=== PATIENT | male | born 1940 | race Caucasian/White ===

== ENCOUNTER 2016-09-24 10:52 | Outpatient (CLI) | payer MEDICARE, BC | END 2016-09-24 10:53 | disposition home or self-care (01) | DX: E11.9 Type 2 diabetes mellitus without complications (principal); R35.0 Frequency of micturition; I25.10 Atherosclerotic heart disease of native coronary artery without angina pectoris; I10 Essential (primary) hypertension ==

== ENCOUNTER 2017-01-04 09:04 | Outpatient (CLI) | payer MEDICARE, BC ==
[2017-01-04 18:29] LABS: CALCIUM 9.6 mg/dL (8.5-10.3); CREATININE 1.2 mg/dL (0.6-1.2); POTASSIUM 4.5 mmol/L (3.5-5.0)
[2017-01-04 19:01] LABS: HEMOGLOBIN A1C 0.75 g/dL
== END 2017-01-04 09:05 | disposition home or self-care (01) ==
LOC: LAB.S 09:04
PROVIDERS: ATTEND Family Medicine
DX: E11.9 Type 2 diabetes mellitus without complications (principal); I10 Essential (primary) hypertension; E03.9 Hypothyroidism, unspecified
CPT/HCPCS: 36415; 80048; 83036; 84443

== ENCOUNTER 2017-03-22 08:31 | Day surgery (SDC) | payer MEDICARE, BC ==
[2017-03-22] MEDS ORDERED: LACTATED RINGERS 1,000 ML IV ONE (09:10)
[2017-03-22] MEDS ORDERED: MIDAZOLAM 2 MG/2 ML VIAL IVP ONE (09:24)
[2017-03-22] MEDS ORDERED: fentaNYL 100 MCG/2 ML VIAL IVP ONE (09:24)
[2017-03-22 10:56] VITALS: BP 132/72
== END 2017-03-22 08:32 | disposition home or self-care (01) ==
LOC: SDS 08:31
PROVIDERS: ATTEND Surgery
PROC: 0DJD8ZZ Inspection of Lower Intestinal Tract, Via Natural or Artificial Opening Endoscopic (ICD-10-PCS; principal; 2017-03-22 09:45)
DX: Z12.11 Encounter for screening for malignant neoplasm of colon (principal); Z85.038 Personal history of other malignant neoplasm of large intestine; K57.30 Diverticulosis of large intestine without perforation or abscess without bleeding; Z98.0 Intestinal bypass and anastomosis status; K64.8 Other hemorrhoids; E11.9 Type 2 diabetes mellitus without complications; I10 Essential (primary) hypertension; I25.10 Atherosclerotic heart disease of native coronary artery without angina pectoris; E66.9 Obesity, unspecified; E78.5 Hyperlipidemia, unspecified; Z95.5 Presence of coronary angioplasty implant and graft; Z79.82 Long term (current) use of aspirin; Z87.891 Personal history of nicotine dependence
CPT/HCPCS: G0105; J7120

== ENCOUNTER 2017-04-19 08:39 | Outpatient (CLI) | payer MEDICARE, BC ==
[2017-04-19 14:15] LABS: HEMOGLOBIN A1C 0.59 g/dL
== END 2017-04-19 08:40 | disposition home or self-care (01) ==
LOC: LAB.S 08:39
PROVIDERS: ATTEND Family Medicine
DX: E11.9 Type 2 diabetes mellitus without complications (principal)
CPT/HCPCS: 36415; 83036

== ENCOUNTER 2017-05-04 08:00 | Outpatient (CLI) | payer MEDICARE, BC ==
[2017-05-04 18:05] LABS: BILIRUBIN,URINE NEGATIVE (NEGATIVE)
[2017-05-04 18:45] LABS: UA CHARGE (STRIP ONLY) YES; UR CULTURE IF IND NOT INDICATED
== END 2017-05-04 08:01 | disposition home or self-care (01) ==
LOC: LAB.R 08:00
PROVIDERS: ATTEND Nurse Practitioner Family
DX: R30.0 Dysuria (principal)
CPT/HCPCS: 81001; 81003; 87086

== ENCOUNTER 2017-05-04 13:33 | Outpatient (CLI) | payer MEDICARE, BC ==
[2017-05-04 17:47] LABS: BASOPHILS % (AUTO) 0.4 %; EOSINOPHILS # (AUTO) 0.3 10^3/uL (0.0-0.7); EOSINOPHILS % (AUTO) 3.2 %; HGB - HEMOGLOBIN 11.3 g/dL (14.0-18.0); LYMPHOCYTES % (AUTO) 10.1 %; MEAN CORPUSCULAR HEMOGLOBIN 30.1 pg (27.0-31.0); MEAN CORPUSCULAR HGB CONC 33.2 g/dL (32.0-36.0); MEAN CORPUSCULAR VOLUME 90.6 fL (80.0-94.0); MEAN PLATELET VOLUME 7.9 fL (7.4-11.4); MONOCYTES # (AUTO) 0.5 10^3/uL (0.0-1.0); MONOCYTES % (AUTO) 5.3 %; NEUTROPHILS # (AUTO) 7.9 10^3/uL (1.5-6.6); RED BLOOD COUNT 3.76 10^6/uL (4.70-6.10); RED CELL DISTRIBUTION WIDTH 13.6 % (12.0-15.0); UNCORRECTED WHITE BLOOD COUNT 9.7 x10^3/uL; WHITE BLOOD COUNT 9.7 x10^3/uL (4.8-10.8)
--- NOTE | 2017-05-04 18:04 | XRAY Report ---
TWO VIEW CHEST: 05/04/2017 CLINICAL INDICATION: Cough. COMPARISON: CT 03/29/2017, plain film 06/02/2011. Frontal and lateral views of the chest demonstrate a normal cardiac silhouette. There are new widesp read infiltrates present, superimposed upon emphysema. No effusion or pneumothorax is seen. IMPRESSION: WIDESPREAD BILATERAL INFILTRATES, SUPERIMPOSED UPON EMPHYSEMA. JOB #: [id number] EXT JOB #:[id number]
== END 2017-05-04 13:34 | disposition home or self-care (01) ==
LOC: LAB.F 13:33
PROVIDERS: ATTEND Family Medicine
DX: J43.9 Emphysema, unspecified (principal); R05 Cough; R30.0 Dysuria
CPT/HCPCS: 36415; 71020; 81001; 81003; 85025; 87086

== ENCOUNTER 2017-05-11 15:58 | Outpatient (CLI) | payer MEDICARE, BC ==
--- NOTE | 2017-05-12 13:42 | XRAY Report ---
TWO VIEW CHEST: 05/11/2017 CLINICAL INDICATION: Pneumonia. COMPARISON: 05/04/2017. FINDINGS: Frontal and lateral views of the chest demonstrate a normal cardiac silhouette. Widespread air space disease and emphysema appear stable. No new consolidation, effusion, or pneumothorax is pr esent. IMPRESSION: STABLE WIDESPREAD AIR SPACE DISEASE AND EMPHYSEMA. JOB #: [id number] EXT JOB #:[id number]
== END 2017-05-11 15:59 | disposition home or self-care (01) ==
LOC: DI.S 15:58
PROVIDERS: ATTEND Nurse Practitioner Family
DX: J18.9 Pneumonia, unspecified organism (principal); J43.9 Emphysema, unspecified
CPT/HCPCS: 71020

== ENCOUNTER 2017-06-10 19:12 | Outpatient (CLI) | payer MEDICARE, BC | END 2017-06-10 19:13 | disposition EMS.NT | LOC: EMS 19:12 | PROVIDERS: ATTEND Surgery | DX: Z03.89 Encounter for observation for other suspected diseases and conditions ruled out (principal); W01.0XXA Fall on same level from slipping, tripping and stumbling without subsequent striking against object, initial encounter; Y92.009 Unspecified place in unspecified non-institutional (private) residence as the place of occurrence of the external cause ==

== ENCOUNTER 2017-06-11 14:05 | Outpatient (CLI) | payer MEDICARE, BC ==
[2017-06-11 17:14] LABS: BILIRUBIN,URINE NEGATIVE (NEGATIVE)
[2017-06-11 17:22] LABS: UR CULTURE IF IND NOT INDICATED
== END 2017-06-11 14:06 | disposition home or self-care (01) ==
LOC: LAB.R 14:05
PROVIDERS: ATTEND Nurse Practitioner Family
DX: R50.9 Fever, unspecified (principal)
CPT/HCPCS: 81001; 87086

== ENCOUNTER 2017-06-11 14:27 | Outpatient (CLI) | payer MEDICARE, BC ==
[2017-06-11 17:51] LABS: ALBUMIN/GLOBULIN RATIO 0.6 (1.0-2.2); BILIRUBIN,TOTAL 0.6 mg/dL (0.2-1.0); CALCIUM 9.4 mg/dL (8.5-10.3); POTASSIUM 3.9 mmol/L (3.5-5.0); TOTAL PROTEIN 8.6 g/dL (6.7-8.2)
[2017-06-11 18:19] LABS: BASOPHILS % (AUTO) 0.5 %; EOSINOPHILS # (AUTO) 0.1 10^3/uL (0.0-0.7); EOSINOPHILS % (AUTO) 1.4 %; HCT - HEMATOCRIT 35.9 % (42.0-52.0); HGB - HEMOGLOBIN 11.7 g/dL (14.0-18.0); LYMPHOCYTES # (AUTO) 1.3 10^3/uL (1.5-3.5); LYMPHOCYTES % (AUTO) 14.5 %; MEAN CORPUSCULAR HEMOGLOBIN 28.3 pg (27.0-31.0); MEAN CORPUSCULAR HGB CONC 32.7 g/dL (32.0-36.0); MEAN CORPUSCULAR VOLUME 86.6 fL (80.0-94.0); MEAN PLATELET VOLUME 7.7 fL (7.4-11.4); MONOCYTES # (AUTO) 0.6 10^3/uL (0.0-1.0); NEUTROPHILS # (AUTO) 6.9 10^3/uL (1.5-6.6); NEUTROPHILS % (AUTO) 76.6 %; NUCLEATED RED BLOOD CELLS AUTO 0.1 /100WBC; RED BLOOD COUNT 4.14 10^6/uL (4.70-6.10); RED CELL DISTRIBUTION WIDTH 14.8 % (12.0-15.0); UNCORRECTED WHITE BLOOD COUNT 8.9 x10^3/uL; WHITE BLOOD COUNT 8.9 x10^3/uL (4.8-10.8)
== END 2017-06-11 14:28 | disposition home or self-care (01) ==
LOC: LAB.F 14:27
PROVIDERS: ATTEND Nurse Practitioner Family
DX: R50.9 Fever, unspecified (principal)
CPT/HCPCS: 36415; 80053; 81001; 85025; 87086

== ENCOUNTER 2017-07-02 11:57 | Outpatient (CLI) | payer MEDICARE, BC ==
--- NOTE | 2017-07-02 18:41 | XRAY Report ---
TWO VIEW CHEST: 07/02/2017 CLINICAL INDICATION: Pneumonia. COMPARISON: 06/02/2017, 05/11/2017. Frontal and lateral views of the chest demonstrate a normal cardiac silhouette. Emphysema is stable. Bilateral air-space disease is unchanged. No effusion or pneumothorax is present. IMPRESSION: STABLE EMPHYSEMA AND BILATERAL AIR-SPACE DISEASE. NO SIGNIFICANT INTERVAL CHANGE. JOB #: [id number] EXT JOB #:[id number]
== END 2017-07-02 11:58 | disposition home or self-care (01) ==
LOC: DI.S 11:57
PROVIDERS: ATTEND Nurse Practitioner Family
DX: J18.9 Pneumonia, unspecified organism (principal); J43.9 Emphysema, unspecified
CPT/HCPCS: 71020

== ENCOUNTER 2017-08-06 12:48 | Outpatient (CLI) | payer MEDICARE, BC | END 2017-08-06 12:49 | disposition home or self-care (01) | LOC: RT 12:48 | PROVIDERS: ATTEND Family Medicine | DX: J44.9 Chronic obstructive pulmonary disease, unspecified (principal); C34.90 Malignant neoplasm of unspecified part of unspecified bronchus or lung | CPT/HCPCS: 94010 ==

== ENCOUNTER 2017-11-11 08:15 | Outpatient (CLI) | payer MEDICARE, BC | END 2017-11-11 08:16 | disposition home or self-care (01) | LOC: LAB.R 08:15 | PROVIDERS: ATTEND Family Medicine | DX: R04.2 Hemoptysis (principal) | CPT/HCPCS: 87070; 87205 ==

== ENCOUNTER 2017-11-11 09:22 | Outpatient (CLI) | payer MEDICARE, BC ==
[2017-11-11 18:02] LABS: ALBUMIN 3.7 g/dL (3.2-5.5); ALBUMIN/GLOBULIN RATIO 0.7 (1.0-2.2); ALKALINE PHOSPHATASE 87 IU/L (42-121); ALT ALANINE AMINOTRANSFERASE 19 IU/L (10-60); AST ASPARTATE AMINOTRANSFERASE 28 IU/L (10-42); BILIRUBIN,TOTAL 0.6 mg/dL (0.2-1.0); BUN - BLOOD UREA NITROGEN 25 mg/dL (6-20); CALCIUM 9.6 mg/dL (8.5-10.3); CARBON DIOXIDE - CO2 28 mmol/L (21-32); CHLORIDE 102 mmol/L (101-111); CHOL/HDL RATIO 5.2 (<5.0); CHOLESTEROL 194 mg/dL; CREATININE 0.9 mg/dL (0.6-1.2); GFR - MDRD 82 (>89); GLUCOSE 153 mg/dL (70-100); HDL CHOLESTEROL 37 mg/dL; LDL CHOLESTEROL,CALCULATED 120 mg/dL; LDL/HDL RATIO 3.2 (<3.6); SODIUM 138 mmol/L (135-145); VLDL CHOLESTEROL 37 mg/dL
[2017-11-11 18:17] LABS: HB2 TOTAL 13.1 g/dL; HEMOGLOBIN A1C 0.7 g/dL
== END 2017-11-11 09:23 | disposition home or self-care (01) ==
LOC: LAB.F 09:22
PROVIDERS: ATTEND Family Medicine
DX: E03.9 Hypothyroidism, unspecified (principal); E11.9 Type 2 diabetes mellitus without complications; I10 Essential (primary) hypertension; E78.5 Hyperlipidemia, unspecified; E29.1 Testicular hypofunction; N52.9 Male erectile dysfunction, unspecified; R04.2 Hemoptysis
CPT/HCPCS: 36415; 80053; 80061; 83036; 83721; 84443; 87070; 87205

== ENCOUNTER 2017-11-17 12:15 | Outpatient (CLI) | payer MEDICARE, BC | END 2017-11-17 12:16 | disposition home or self-care (01) | LOC: LAB.R 12:15 | PROVIDERS: ATTEND Family Medicine | DX: R04.2 Hemoptysis (principal) | CPT/HCPCS: 87070; 87205 ==

== ENCOUNTER 2017-12-02 17:13 | Outpatient (CLI) | payer MEDICARE, BC | END 2017-12-02 17:14 | disposition short-term general hospital (02) | LOC: EMS 17:13 | PROVIDERS: ATTEND Surgery | DX: R04.2 Hemoptysis (principal); R42 Dizziness and giddiness | CPT/HCPCS: A0425; A0427 ==

== ENCOUNTER 2018-06-19 10:37 | Outpatient (CLI) | payer MEDICARE, BC | END 2018-06-19 10:38 | disposition short-term general hospital (02) | LOC: EMS 10:37 | PROVIDERS: ATTEND Surgery | DX: R07.9 Chest pain, unspecified (principal) | CPT/HCPCS: A0170; A0425; A0427 ==

== ENCOUNTER 2018-07-28 10:40 | Outpatient (CLI) | payer MEDICARE, BC ==
[2018-07-28 17:57] LABS: HB2 TOTAL 13.1 g/dL; HEMOGLOBIN A1C 0.71 g/dL; HEMOGLOBIN A1C % 7.1 % (4.6-6.2)
[2018-07-28 18:04] LABS: ALBUMIN 4.5 g/dL (3.2-5.5); ALKALINE PHOSPHATASE 80 IU/L (42-121); ALT ALANINE AMINOTRANSFERASE 34 IU/L (10-60); AST ASPARTATE AMINOTRANSFERASE 38 IU/L (10-42); BILIRUBIN,TOTAL 0.8 mg/dL (0.2-1.0); BUN - BLOOD UREA NITROGEN 31 mg/dL (6-20); CALCIUM 9.8 mg/dL (8.5-10.3); CARBON DIOXIDE - CO2 25 mmol/L (21-32); CHLORIDE 102 mmol/L (101-111); CHOL/HDL RATIO 3.7 (<5.0); CHOLESTEROL 149 mg/dL; CREATININE 1.2 mg/dL (0.6-1.2); GFR - MDRD 59 (>89); GLUCOSE 165 mg/dL (70-100); HDL CHOLESTEROL 40 mg/dL; LDL CHOLESTEROL,CALCULATED 55 mg/dL; LDL/HDL RATIO 1.4 (<3.6); SODIUM 137 mmol/L (135-145); TOTAL PROTEIN 8.8 g/dL (6.7-8.2); VLDL CHOLESTEROL 54 mg/dL
== END 2018-07-28 10:41 | disposition home or self-care (01) ==
LOC: LAB.F 10:40
PROVIDERS: ATTEND Internal Medicine
DX: E78.5 Hyperlipidemia, unspecified (principal); E11.9 Type 2 diabetes mellitus without complications; E03.9 Hypothyroidism, unspecified
CPT/HCPCS: 36415; 80053; 80061; 83036; 83721; 84443

== ENCOUNTER 2019-06-27 13:29 | Outpatient (CLI) | payer MEDICARE, BC ==
--- NOTE | 2019-06-28 11:16 | XRAY Report ---
Reason: CHEST PAINM, UNSPECIFIED Procedure Date: 06/27/2019 Accession Number: [id number] / [id number] Procedure: XRS - Chest 2 View X-Ray CPT Code: 07508 Final Report FULL RESULT: EXAM: CHEST RADIOGRAPHY EXAM DATE: 06/27/2019 01:51 PM. CLINICAL HISTORY: Chest pain, unspecified. COMPARISON: CHEST 2 VIEW PA/LAT 07/02/2017 12:13 PM CHEST W/ 03/14/2018 10:17 AM. TECHNIQUE: 2 views. FINDINGS: Lungs/Pleura: No significant change in prominent bilateral fibrotic changes and emphysematous changes. No acute consolidations identified. No pleural fluid collections. Mediastinum: Heart and mediastinal contours are within normal limits. Other: None. IMPRESSION: Evidence of chronic lung disease without acute consolidation detected. RADIA
== END 2019-06-27 13:30 | disposition home or self-care (01) ==
LOC: DI.S 13:29
PROVIDERS: ATTEND Internal Medicine
DX: J98.4 Other disorders of lung (principal)
CPT/HCPCS: 71046

== ENCOUNTER 2019-10-06 16:15 | Outpatient (CLI) | payer MEDICARE, BC | END 2019-10-06 16:16 | disposition critical access hospital (66) | LOC: EMS 16:15 | PROVIDERS: ATTEND Surgery | DX: R25.2 Cramp and spasm (principal); R19.7 Diarrhea, unspecified; R53.1 Weakness | CPT/HCPCS: A0425; A0427 ==

== ENCOUNTER 2019-10-06 16:42 | Observation (INO) | payer MEDICARE, BC ==
[2019-10-06] MEDS ORDERED: SODIUM CHLORIDE 0.9% 500 ML IV ONE ×2 (16:53→19:11)
--- NOTE | 2019-10-06 16:55 | ED Physician Documentation ---
PD HPI DYSPNEA - Stated complaint Stated Complaint: CHEST DISCOMFORT - History obtained from History obtained from: Patient, EMS - History of Present Illness Timing - onset: Other (78-year-old gentleman with history of coronary disease, asbestosis status post lobectomy, diabetes. For the last 5 days after eating he thinks some bad fish he has had diarrhea. Subsequently over the last 3 days has had chills and had a fever of 102 yesterday. He has a cough but vacillates as to whether or not this is new. He says he always has got chronic and currently hemoptysis ever since his lobectomy. He notes mild chest discomfort. That is been going on for about 2 days pretty constantly. She also had cramps in his stomach but that is more of a subacute to chronic issue.) Review of Systems Ten Systems: 10 systems reviewed and negative Constitutional: reports: Fever, Chills Eyes: denies: Loss of vision Ears: denies: Loss of hearing, Ear pain Nose: denies: Rhinorrhea / runny nose, Congestion Throat: denies: Sore throat Cardiac: reports: Chest pain / pressure. denies: Palpitations, Pedal edema, Calf pain Respiratory: reports: Dyspnea, Cough, Hemoptysis. denies: Wheezing GI: reports: Abdominal Pain, Nausea, Vomiting, Diarrhea Musculoskeletal: denies: Neck pain, Back pain PD PAST MEDICAL HISTORY - Past Medical History Cardiovascular: Hypertension, High cholesterol, Other Respiratory: Emphysema, Other Endocrine/Autoimmune: HyPOthyroidism GI: GERD, Colon polyps : Benign prostate hypertrophy, Kidney stones HEENT: Chronic hearing loss, Dental implants, Other Psych: None Musculoskeletal: Osteoarthritis, Chronic back pain Derm: None - Past Surgical History Past Surgical History: Yes General: Bowel surgery, Colonoscopy, Other Cardiovascular: Coronary stent - Present Medications Home Medications: Ambulatory Orders Medication Instructions Recorded Confirmed Aspirin 81 mg PO DAILY 04/07/14 08/09/19 Levothyroxine [Synthroid] 100 mcg PO DAILY 04/07/14 08/09/19 Lisinopril 20 mg PO DAILY 04/07/14 08/09/19 [place]-3 Fatty Acids [Fish Oil] 500 mg PO DAILY 04/07/14 08/09/19 Multivit-Minerals/Folic Acid 1 tab PO DAILY 02/06/16 08/09/19 [Centrum Multigummies] Metformin HCl 1,000 mg PO QPM 02/10/16 08/09/19 Insulin Glargine,Hum.rec.anlog 20 unit SQ DAILY 03/19/17 08/09/19 [[place] Solostar] Ascorbic Acid [Vitamin C] 1 tab PO DAILY 12/07/18 08/09/19 Atorvastatin Calcium 20 mg PO DAILY 12/07/18 08/09/19 Calcium Carbonate [Tums (Calcium 1 tab PO DAILY PRN 12/07/18 08/09/19 Carbonate 500mg)] Calcium Carbonate/Vitamin D3 500 mg PO DAILY 12/07/18 08/09/19 [Calcium 250-D Tablet] Cholecalciferol (Vitamin D3) 1 cap PO DAILY 12/07/18 08/09/19 [Vitamin D3] Felodipine [Felodipine ER] 10 mg PO DAILY 12/07/18 08/09/19 Furosemide [Lasix] 20 mg PO DAILY 12/07/18 08/09/19 Lactobacillus Acidophilus 1 cap PO BID 12/07/18 08/09/19 [Acidophilus] Losartan Potassium 50 mg PO DAILY 12/07/18 08/09/19 Metoprolol Succinate [Toprol Xl] 1 tab PO BID 12/07/18 08/09/19 Nitroglycerin 1 tab PO DAILY PRN 12/07/18 08/09/19 Pantoprazole Sodium [Protonix] 20 mg PO DAILY 12/07/18 08/09/19 Pseudoephedrine [Sudafed] 2 tab PO DAILY PRN 12/07/18 08/09/19 Spironolactone 25 mg PO DAILY 12/07/18 08/09/19 Turmeric 2 cap PO DAILY 12/07/18 08/09/19 predniSONE [Prednisone] 10 mg PO DAILY PRN 12/07/18 08/09/19 - Allergies Allergies/Adverse Reactions: Allergies Allergy/AdvReac Type Severity Reaction Status Date / Time Tetanus Vaccines and Toxoid AdvReac Unknown Verified 10/06/19 17:44 [Tetanus Vaccines & Toxoid] - Social History Does the pt smoke?: No Smoking Status: Never smoker Does the pt drink ETOH?: No Does the pt have substance abuse?: No - Family History Family history: reports: Non contributory - Immunizations Immunizations are current?: Yes - POLST Patient has POLST: No PD ED PE NORMAL - Vitals Vital signs reviewed: Yes - General General: Alert and oriented X 3, No acute distress - HEENT HEENT: PERRL, EOMI - Neck Neck: Supple, no meningeal sign, No bony TTP - Cardiac Cardiac: RRR, No murmur - Respiratory Respiratory: No respiratory distress, Clear bilaterally - Abdomen Abdomen: Normal bowel sounds, Soft, Non tender - Back Back: No CVA TTP, No spinal TTP - Derm Derm: Normal color, Warm and dry - Extremities Extremities: No edema, No calf tenderness / cord - Neuro Neuro: Alert and oriented X 3, No motor deficit, No sensory deficit, Normal speech Results - Vitals Vitals: Vital Signs - 24 hr 10/06/19 10/06/19 10/06/19 16:50 17:45 18:57 Temperature 36.7 C 37.2 C Heart Rate 70 68 81 Respiratory 22 24 25 H Rate Blood Pressure 121/95 H 128/69 110/47 L O2 Saturation 93 92 93 10/06/19 19:03 Temperature Heart Rate 81 Respiratory 29 H Rate Blood Pressure 98/65 O2 Saturation 93 Oxygen O2 Source Room air - EKG (time done) 1658 Rate: Rate (enter#) (72) Rhythm: NSR [place]: Normal Intervals: Normal ND QRS: Normal Ischemia: Normal ST segments Computer interpretation: Agree with computer - Labs Labs: Laboratory Tests 10/06/19 10/06/19 10/06/19 17:14 17:14 17:14 WBC 6.1 RBC 4.24 L Hgb 12.5 L Hct 38.0 L MCV 89.6 MCH 29.5 MCHC 32.9 RDW 12.8 Plt Count 158 MPV 10.0 Neut # (Auto) 3.8 Lymph # (Auto) 1.8 [place] # (Auto) 0.5 Eos # (Auto) 0.0 Baso # (Auto) 0.0 Absolute Nucleated RBC 0.00 Nucleated RBC % 0.0 PT 13.0 H INR 1.2 Sodium 132 L Potassium 4.2 Chloride 95 L Carbon Dioxide 23 Anion Gap 14.0 H BUN 32 H Creatinine 1.5 H Estimated GFR (MDRD) 45 L Glucose 158 H Lactic Acid Calcium 9.7 Total Bilirubin 0.5 AST 40 ALT 24 Alkaline Phosphatase 55 Troponin I High Sens Total Protein 8.4 H Albumin 4.3 Globulin 4.1 Albumin/Globulin Ratio 1.0 Lipase 49 Urine Color Urine Clarity Urine pH Ur Specific Allen Urine Protein Urine Glucose (UA) Urine Ketones Urine Occult Blood Urine Nitrite Urine Bilirubin Urine Urobilinogen Ur Leukocyte Esterase Ur Microscopic Review Urine Culture Comments 10/06/19 10/06/19 10/06/19 17:14 17:14 18:08 WBC RBC Hgb Hct MCV MCH MCHC RDW Plt Count MPV Neut # (Auto) Lymph # (Auto) [place] # (Auto) Eos # (Auto) Baso # (Auto) Absolute Nucleated RBC Nucleated RBC % PT INR Sodium Potassium Chloride Carbon Dioxide Anion Gap BUN Creatinine Estimated GFR (MDRD) Glucose Lactic Acid 3.9 H* Calcium Total Bilirubin AST ALT Alkaline Phosphatase Troponin I High Sens 21.6 H* Total Protein Albumin Globulin Albumin/Globulin Ratio Lipase Urine Color YELLOW Urine Clarity CLEAR Urine pH 5.5 Ur Specific Allen 1.015 Urine Protein NEGATIVE Urine Glucose (UA) NEGATIVE Urine Ketones NEGATIVE Urine Occult Blood NEGATIVE Urine Nitrite NEGATIVE Urine Bilirubin NEGATIVE Urine Urobilinogen 0.2 (NORMAL) Ur Leukocyte Esterase NEGATIVE Ur Microscopic Review NOT INDICATED Urine Culture Comments NOT INDICATED PD MEDICAL DECISION MAKING - ED course ED course: 78-year-old gentleman with multiple comorbidities including prior lobectomy, diabetes, hypertension, emphysema, presents with shaking chills. A fever yesterday. Ongoing diarrhea for the last 5 days[address] recent travel[address] CT of the chest shows no acute disease, he did have blood pressures trending down here despite getting about 2 L of crystalloid in the department and a lactic acidosis. There may be some sort of infection somewhere but given the lack of white count hard to know what to treat now. Obviously no source of pulmonary or urine infection on the work-up done so far. Very modestly elevated troponin can be trended but certainly not diagnostic of an NM. Spoke with Dr. Em for observation at 730, we agree we will hold off on antibiotics given the lack of source or obvious sepsis at this juncture. Departure - Departure Disposition: ED Place in Observation Clinical Impression: Atypical chest pain, Lactic acidosis Dyspnea Qualifiers: Dyspnea type: shortness of breath Qualified Code(s): R06.02 - Shortness of breath Diarrhea Qualifiers: Diarrhea type: presumed infectious Qualified Code(s): R19.7 - Diarrhea, unspecified Condition: Stable
[2019-10-06] MEDS ORDERED: IOVERSOL 320 100 ML VIAL IVP ONE ×2 (17:10→18:05)
[2019-10-06 17:33] LABS: BASOPHILS % (AUTO) 0.3 %; EOSINOPHILS % (AUTO) 0.3 %; HGB - HEMOGLOBIN 12.5 g/dL (14.0-18.0); LYMPHOCYTES # (AUTO) 1.8 10^3/uL (1.5-3.5); LYMPHOCYTES % (AUTO) 29.8 %; MEAN CORPUSCULAR HEMOGLOBIN 29.5 pg (27.0-31.0); MEAN CORPUSCULAR HGB CONC 32.9 g/dL (32.0-36.0); MEAN CORPUSCULAR VOLUME 89.6 fL (80.0-94.0); MONOCYTES # (AUTO) 0.5 10^3/uL (0.0-1.0); MONOCYTES % (AUTO) 7.5 %; NEUTROPHILS # (AUTO) 3.8 10^3/uL (1.5-6.6); NEUTROPHILS % (AUTO) 61.8 %; PLT - PLATELET COUNT 158 10^3/uL (130-450); RED BLOOD COUNT 4.24 10^6/uL (4.70-6.10); RED CELL DISTRIBUTION WIDTH 12.8 % (12.0-15.0); WHITE BLOOD COUNT 6.1 x10^3/uL (4.8-10.8)
[2019-10-06 17:40] LABS: INR 1.2 (0.8-1.2)
[2019-10-06 17:44] LABS: ALBUMIN 4.3 g/dL (3.2-5.5); BILIRUBIN,TOTAL 0.5 mg/dL (0.2-1.0); CALCIUM 9.7 mg/dL (8.5-10.3); CREATININE 1.5 mg/dL (0.6-1.2); TOTAL PROTEIN 8.4 g/dL (6.7-8.2)
[2019-10-06] MEDS ORDERED: SODIUM CHLORIDE 0.9% 1,000 ML IV ONE (18:01)
[2019-10-06 18:16] LABS: BILIRUBIN,URINE NEGATIVE (NEGATIVE); GLUCOSE, URINE (UA) NEGATIVE (NEGATIVE); KETONES,URINE (UA) NEGATIVE (NEGATIVE); LEUKOCYTE ESTERASE, URINE NEGATIVE (NEGATIVE); NITRITE,URINE NEGATIVE (NEGATIVE); OCCULT BLOOD,URINE NEGATIVE (NEGATIVE); PH,URINE 5.5 PH (5.0-7.5); PROTEIN,URINE NEGATIVE (NEGATIVE); UROBILINOGEN,URINE 0.2 (NORMAL) E.U./dL (NORMAL)
[2019-10-06 18:19] LABS: CLARITY,URINE CLEAR (CLEAR)
--- NOTE | 2019-10-06 18:38 | CT Report ---
Reason: hemoptysis Procedure Date: 10/06/2019 Accession Number: [id number] / [id number] Procedure: CT - ANGIO CHEST W/WO CPT Code: Final Report FULL RESULT: EXAM: CT ANGIOGRAM CHEST EXAM DATE: 10/06/2019 06:08 PM. CLINICAL HISTORY: Hemoptysis. History of lung cancer, colon cancer. COMPARISON: ABDOMEN/PELVIS W03/14/2018 10:17 AM CHEST W03/14/2018 10:17 AM. TECHNIQUE: Routine helical imaging was performed through the chest in the pulmonary arterial phase. IV Contrast: 80 cc of OPTIRAY 320. Reconstructions: Coronal 3-D MIP reconstructions. Sagittal and coronal. In accordance with CT protocol optimization, one or more of the following dose reduction techniques were utilized for this exam: automated exposure control, adjustment of mA and/or KV based on patient size, or use of iterative reconstructive technique. FINDINGS: Pulmonary Arteries: Diagnostic quality: Adequate through the segmental arteries. Linear filling defect in the artery to the right apex, likely chronic. No evidence for acute pulmonary emboli. No arterial extravasation noted. RV/LV is within normal limits. There is no interventricular septal bowing. There is no reflux of contrast material in the IVC. Lungs/Pleura: Paraseptal emphysema in the upper lungs. Moderate peripheral reticulation, with basilar honeycombing and traction bronchiectasis. Stable surgical staple line in the posterior left upper lobe. Increased pleural thickening in the lateral left major fissure. Patrick in the anterior right upper lobe, with improving right upper lobe infiltrate. No new consolidation. No pleural effusion or pneumothorax. Mediastinum: Mild aortic and severe coronary artery calcification noted. No cardiac enlargement or adenopathy. Calcified mediastinal lymph nodes again noted. Right hilar surgical clips from prior resection. Thoracic Aorta: Unremarkable. Upper Abdomen: Unremarkable. Other: None. IMPRESSION: 1. No sign of acute pulmonary emboli or arterial extravasation, noting filling defect in the artery to the right apex likely representing chronic pulmonary embolus. 2. Chronic lung disease, with mild scarring from previous anterior right apical infiltrate, noting no acute pulmonary disease. 3. Increased pleural thickening in the lateral left major fissure. RADIA
[2019-10-06] MEDS ORDERED: SODIUM CHLORIDE FLUSH 0.9% 10 ML SYRINGE IVP PRN (19:31)
[2019-10-06] MEDS ORDERED: ACETAMINOPHEN 325 MG TABLET PO PRN (19:31)
[2019-10-06] MEDS ORDERED: ONDANSETRON 4 MG/2 ML VIAL IVP PRN (19:31)
--- NOTE | 2019-10-06 19:51 | HISTORY & PHYSICAL EXAMINATION ---
Chief Complaint - Chief Complaint Chief Complaint: Weakness and lethargy History of Present Illness - Admitted From Admitted From:: Home - History Obtained From Records Reviewed: Yes History obtained from: Patient, Spouse, ER Physician, EMR - History of Present Illness HPI Comment/Other: This is a 78-year-old male with a history of coronary artery disease status post stenting, type 2 diabetes mellitus, hypertension, history of colon cancer status post hemicolectomy, history of lung cancer status post lobectomy, asbestosis with chronic hemoptysis who presents today complaining of weakness and lethargy. The patient states symptoms began about 2 days ago when he became very weak and lethargic and was unable to ambulate on his own. He required assistance from his . At baseline, he ambulates on his own without assistance. His states that he was very slow to answer questions and process them but that he was not disoriented or confused. She states he has also had low-grade fevers with a temperature of 100 F and this was checked orally. She did give him Tylenol yesterday evening. She states he has also had shakes and chills. The patient reports he has been having diarrhea for about the last 5 days. He is only had one bowel movement today and one bowel movement yesterday. He reports no blood in his stool. The stool is soft and not liquid. He reports no recent antibiotic use, hospitalizations, travel. He reports no sick contacts. He has no associated abdominal pain, nausea, vomiting. His appetite has decreased but his had been forcing him to drink water over the past couple of days. He reports no chest pain but is complaining of decreased exercise tolerance and dyspnea with exertion. He has a chronic cough and hemoptysis secondary to the asbestosis. His cough is not worse than usual. Reports no dysuria, urgency, hematuria. He complains of generalized weakness but no focal deficits. Denies numbness of the extremities. In the emergency department, he is found to be afebrile with a temperature of 36.7 C. He was not tachycardic with a heart rate of 70. His initial blood pressure was 121/95 but it did decrease to the 90 systolic after 2 L of saline. He was tachypneic with a respiratory rate in the high 20s but he was saturating 93% on room air and he reports his baseline is 93 to 94%. CBC showed a normal white count with a normal differentiation. BMP revealed a sodium of 132, anion gap of 14, creatinine of 1.5. His lactic acid was elevated at 3.9. His troponin was also elevated at 21.6. His urinalysis was unremarkable. A CTA of the chest was negative for pulmonary embolism and did not show an infiltrate. Rapid flu test was also negative. His EKG was not suggestive of ischemia. Given the fact that his blood pressure remained on the lower side despite 2 L of IV fluids and the fact that he has been having fevers at home and now is elevated lactic acid, he will be observed overnight for work-up of possible infection. Of note, I did discuss goals of care with the patient and he would like to be a DNR. History - Past Medical History Cardiovascular: reports: Hypertension, High cholesterol, Coronary artery disease, Other Respiratory: reports: Emphysema, Other (Asbestosis. Adenocarcinoma of the lung s/p resection.) Neuro: reports: None Endocrine/Autoimmune: reports: HyPOthyroidism GI: reports: GERD, Colon polyps : reports: Benign prostate hypertrophy, Kidney stones HEENT: reports: Chronic hearing loss, Dental implants, Other Psych: reports: None Musculoskeletal: reports: Osteoarthritis, Chronic back pain Derm: reports: None MRSA Hx?: No Other Past Medical History: Malignant neoplasm of colon and lung, hemoptysis - Past Surgical History General: reports: Bowel surgery, Colonoscopy, Other (Lobecetomy.) Cardiovascular: reports: Coronary stent - Family & Social History Family History Comment/Other: He reports his mother in her 40s and his father in his 60s. He does not recall any family history. Living arrangement: At home Living Situation: With spouse/s.o. Social History Notes: He lives at home with his second , Jeri. He is now retired. He quit smoking in the 80s after he smoked a pack a day for 25 years. He has an occasional drink once a week. - POLST Patient has POLST: No Meds/Allgy - Home Medications Home Medications: Ambulatory Orders Medication Instructions Recorded Confirmed Levothyroxine [Synthroid] 100 mcg PO DAILY 04/07/14 10/06/19 Metformin HCl 1,000 mg PO QPM 02/10/16 10/06/19 Atorvastatin Calcium 20 mg PO DAILY 12/07/18 10/06/19 Cholecalciferol (Vitamin D3) 1 cap PO DAILY 12/07/18 10/06/19 [Vitamin D3] Felodipine [Felodipine ER] 10 mg PO DAILY 12/07/18 10/06/19 Furosemide [Lasix] 20 mg PO DAILY 12/07/18 10/06/19 Losartan Potassium 50 mg PO DAILY 12/07/18 10/06/19 Metoprolol Succinate [Toprol Xl] 1 tab PO BID 12/07/18 10/06/19 Nitroglycerin 1 tab PO DAILY PRN 12/07/18 10/06/19 Pantoprazole Sodium [Protonix] 40 mg PO DAILY 12/07/18 10/06/19 Turmeric 2 cap PO DAILY 12/07/18 10/06/19 - Allergies Allergies/Adverse Reactions: Allergies Allergy/AdvReac Type Severity Reaction Status Date / Time Tetanus Vaccines and Toxoid AdvReac Unknown Verified 10/06/19 17:44 [Tetanus Vaccines & Toxoid] Review of Systems - Constitutional Constitutional: reports: Fatigue, Fever (Low grade), Malaise, Weakness, Poor appetite. denies: Chills, Weight gain, Weight loss - Cardiovascular Cariovascular: reports: Exertional dyspnea, Decr. exercise tolerance. denies: Irregular heart rate, Palpitations, Chest pain, Edema - Respiratory Respiratory: reports: Cough, Hemoptysis, SOB with exertion. denies: SOB at rest - Gastrointestinal Gastrointestinal: reports: Diarrhea. denies: Abdominal pain, Constipation, Black stools, Bloody stools, Nausea, Vomiting - Genitourinary Genitourinary: reports: Frequency. denies: Dysuria, Urgency, Hematuria - Musculoskeletal Musculoskeletal: denies: Muscle pain, Limited range of motion - Integumentary Integumentary: denies: Rash - Neurological Neurological: reports: General weakness. denies: Focal weakness, Numbness, Memory problems - Endocrine Endocrine: reports: Polyuria - All Other Systems All Other Systems: reports: Reviewed and negative Prior Level of Functionality: He is independent with his ADLs. Exam - Vital Signs Reviewed Vital Signs: Yes Vital Signs: Vital Signs x48h Temp Pulse Resp BP Pulse Ox 10/06/19 19:38 37.5 C 81 28 H 121/54 L 93 10/06/19 19:03 81 29 H 98/65 93 10/06/19 18:57 37.2 C 81 25 H 110/47 L 93 10/06/19 17:45 68 24 128/69 92 10/06/19 16:50 36.7 C 70 22 121/95 H 93 - Physical Exam General Appearance: positive: No acute distress, Alert Eyes Bilateral: positive: Normal inspection, Conjunctivae nml ENT: positive: ENT inspection nml, Dry mucous membranes Neck: positive: Nml inspection Respiratory: positive: No respiratory distress, Other (Absent breaht sounds in left upper lobe.). negative: Wheezes, Rales, Rhonchi Cardiovascular: positive: Regular rate & rhythm, No murmur. negative: Tachycardia, Bradycardia, Systolic murmur Abdomen: positive: Non-tender, Nml bowel sounds, No distention. negative: Tenderness, Guarding, Rebound Skin: positive: No rash, Warm, Dry Extremities: positive: Full ROM, No pedal edema Neurologic/Psychiatric: positive: Oriented x3, Other (No focal motor deficits. He does have episodes of rigor's during my exam that last a few seconds.). negative: Disoriented to person, Disoriented to place, Disoriented to time, Facial droop, Slurred/abnml speech Conclusion/Plan - Problem List (1) Hypotension Conclusion/Plan: Blood pressure has been borderline at times with lowest reading of 98/65 and this was despite 2 L of normal saline. Given his reported fevers at home and his current presentation lactic acid, infection will need to be ruled out. We will hold his home antihypertensives for the time being given his borderline blood pressures. We will continue to hydrate him with IV fluids. Blood cultures have been drawn and are pending. His urinalysis is not productive of infection. His rapid influenza was negative. CTA of the chest did not reveal an obvious infiltrate. We will hold off on antibiotics for the time being given he has no white count, no fever at this time, and there is no obvious source of infection. (2) Lethargy Conclusion/Plan: His reports he has been lethargic and very weak at home and has associated shakiness and low-grade fevers with temperature 100 degrees. Given his borderline hypotension, we will work-up potential infectious causes. This may be secondary to dehydration as well. He is currently alert and oriented and back to his baseline from mental standpoint but he is still physically weak and has Rigor's present on exam. Plan will be as mentioned above for hypotension. (3) Diarrhea Conclusion/Plan: His presentation appears to be secondary to gastroenteritis. Do not suspect a bacterial etiology given he is having about 1-2 bowel movements a day which would not suggest C. difficile. We will continue to hydrate him with IV fluids. Carb controlled diet as tolerated. Qualifiers: Diarrhea type: presumed infectious Qualified Code(s): R19.7 - Diarrhea, unspecified (4) Lactic acidosis Conclusion/Plan: His lactic acid is elevated at 3.9 and this may be secondary to metformin but we will need to rule out infectious etiologies given his reported fevers at home as well as his borderline hypotension. We will continue to hydrate him with IV fluids and recheck a lactic acid. Hold metformin. (5) Hyponatremia Conclusion/Plan: Suspect this is hypovolemic hyponatremia as he appears dry on exam. Sodium is low at 132 He has received 2 L of saline in the emergency department. We will continue him on lactated Ringer's and recheck a sodium in the morning. (6) Coronary artery disease Conclusion/Plan: He has known coronary artery disease with stenting in the past. He was on Brilinta up until the end of 2019. His EKG at this time does not show signs of ischemia and he reports no chest pain. His troponin is only mildly elevated at 21 which may be demand ischemia given his presentation. We will continue to trend his troponin and monitor him on telemetry. We will continue his home aspirin and Lipitor. We will hold his beta-felipe for the time being given his borderline blood pressures but will resume when clinically appropriate. (7) Chronic kidney disease, stage III (moderate) Conclusion/Plan: He has stage III chronic kidney disease likely secondary to diabetes and his baseline creatinine is around 1.5. His renal function is currently at baseline. We will continue to hydrate him given his borderline hypotension. Monitor his renal function and urine output. (8) Type 2 diabetes mellitus Conclusion/Plan: He has type 2 diabetes mellitus for which he takes metformin and Lantus. We will resume his home Lantus dosing and place him on a sliding scale while he is hospitalized as well as a carb controlled diet. Hold metformin given the lactic acidosis. (9) Hypothyroidism Conclusion/Plan: His last TSH was at the lower limit of normal and his presentation with diarrhea, shakes, chills may potentially be due to a high dose of Synthroid and therefore we will check a TSH. We will hold his home Synthroid for the time being. (10) Pulmonary asbestosis Conclusion/Plan: Chronic and stable. He reports his baseline oxygen saturations are 90 to 94%. He does have chronic hemoptysis associated with the disease. Will continue outpatient follow-up. (11) History of colon cancer Conclusion/Plan: He has history of stage II adenocarcinoma of the colon status post hemicolectomy in 2008. He did not receive adjuvant chemotherapy. He follows with Dr. Vasquez on a yearly basis. Currently in remission. 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 He did not receive adjuvant chemotherapy. He is currently in remission. - Lab Results Lab results reviewed: Yes Fish Bones: 10/06/19 17:14 10/06/19 17:14 - Diagnostic Imaging Results Diagnostic Imaging Results: positive: Final report reviewed - EKG Results EKG Interpreted Independently: Yes EKG Comparison: No prior EKG EKG Findings: Sinus rhythm without ischemic changes. Core Measures - Anticipated LOS I expect patient to be DC'd or transferred within 96 hours.: Yes - Issues Hospital Issues and Management Plan: 78-year-old male who presents with fevers and chills and is found to be borderline hypotensive with an elevated lactic acid. We will observe him overnight for further work-up of possible infection. No obvious source at the moment. - DVT/VTE - Prophylaxis VTE/DVT Device ordered at admit?: Yes VTE/DVT Prophylaxis med ordered at admit?: Yes
[2019-10-06] MEDS ORDERED: ATORVASTATIN 40 MG TABLET PO SCH (21:00)
[2019-10-06] MEDS ORDERED: LACTATED RINGERS 1,000 ML IV ONE (21:07)
[2019-10-06] MEDS: LACTATED RINGERS 1,000 ML IV SCH (21:10)
[2019-10-06] MEDS: HEPARIN 5,000 UNIT/ML VIAL SUBQ SCH (21:10)
[2019-10-06] MEDS: INSULIN ASPART 300 UNIT/3 ML PEN SUBQ SCH (21:34)
[2019-10-07] MEDS: SODIUM CHLORIDE FLUSH 0.9% 10 ML SYRINGE IVP SCH ×2 (00:33→11:01)
[2019-10-07 05:35] LABS: BASOPHILS % (AUTO) 0.2 %; EOSINOPHILS % (AUTO) 0.2 %; HGB - HEMOGLOBIN 11.2 g/dL (14.0-18.0); LYMPHOCYTES # (AUTO) 1.5 10^3/uL (1.5-3.5); LYMPHOCYTES % (AUTO) 30.9 %; MEAN CORPUSCULAR HEMOGLOBIN 29.2 pg (27.0-31.0); MEAN CORPUSCULAR HGB CONC 33.2 g/dL (32.0-36.0); MEAN PLATELET VOLUME 9.7 fL (7.4-11.4); MONOCYTES # (AUTO) 0.4 10^3/uL (0.0-1.0); MONOCYTES % (AUTO) 7.7 %; NEUTROPHILS # (AUTO) 2.9 10^3/uL (1.5-6.6); NEUTROPHILS % (AUTO) 60.8 %; PLT - PLATELET COUNT 124 10^3/uL (130-450); RED BLOOD COUNT 3.83 10^6/uL (4.70-6.10); RED CELL DISTRIBUTION WIDTH 12.7 % (12.0-15.0); WHITE BLOOD COUNT 4.8 x10^3/uL (4.8-10.8)
[2019-10-07 05:48] LABS: CALCIUM 8.4 mg/dL (8.5-10.3); CREATININE 1.2 mg/dL (0.6-1.2); MAGNESIUM 1.2 mg/dL (1.7-2.8); PHOSPHORUS 2.8 mg/dL (2.5-4.6)
[2019-10-07] MEDS: LACTATED RINGERS 1,000 ML IV SCH (06:09)
[2019-10-07] MEDS ORDERED: PANTOPRAZOLE 40 MG TABLET PO SCH (07:00)
[2019-10-07] MEDS ORDERED: LEVOTHYROXINE 100 MCG TABLET PO SCH ×2 (07:00→11:00)
[2019-10-07] MEDS ORDERED: MAGNESIUM SULFATE 2 GRAM 2 GM/50 ML BAG IV ONE (07:17)
[2019-10-07] MEDS ORDERED: MAGNESIUM OXIDE 400 MG TABLET PO SCH (08:00)
[2019-10-07] MEDS: INSULIN ASPART 300 UNIT/3 ML PEN SUBQ SCH (08:09)
[2019-10-07] MEDS ORDERED: METOPROLOL SUCCINATE 25 MG TABLET PO SCH (09:00)
[2019-10-07] MEDS ORDERED: ASPIRIN EC 81 MG TABLET PO SCH (09:00)
[2019-10-07] MEDS ORDERED: INSULIN GLARGINE 300 UNIT/3 ML PEN SUBQ SCH (09:00)
--- NOTE | 2019-10-07 10:18 | PHARMACY PROGRESS NOTE ---
- Best Possible Medication History Admit Date and Time: 10/06/191930 Processed by: Pharmacy Medication History completed: Yes Patient Interview: Completed Secondary Source(s): Pharmacy records, Insurance records As the person ultimately responsible for medication therapy, providers are able to order a medication from an existing home medication list in [facility] via the "Reconcile Routine" prior to Confirmation of that medication by [employer] support. Such practice is discouraged except when the physician, in their clinical judgment, deems that a medical need exists for a medication without regard to previous use.
--- NOTE | 2019-10-07 10:24 | Discharge Plan ---
Discharge Plan Problem Reviewed?: Yes Disposition: Home, Self Care Condition: Good Prescriptions: Magnesium Oxide [Mag Ox] 400 mg PO BIDWM #60 tablet Ondansetron HCl [Zofran] 4 mg PO Q4H PRN #30 tablet PRN Reason: Nausea / Vomiting Diet: Diabetic Activity Restrictions: Activity as Tolerated Shower Restrictions: No Health Concerns: Nausea and vomiting Lethargy Elevated lactic acid Elevated troponin Low magnesium Plan of Treatment: Resume all of your regular medications, take a magnesium supplement Take Zofran for nausea which has been sent to your pharmacy Get a sleep study to properly treat your sleep apnea If you are ill, seek medical attention Care Goals: Prevent a recurrence of this episode Prevent hospital stays or ED visits Stay healthy and live independently as you have been Assessment: The nausea and vomiting that you reported may have been from a food choice at a restaurant prior to your admission. This may have led to your lethargy (weakness, slight confusion). The elevated lactic acidosis was likely due to a build up of your Metformin caused by dehydration since you were vomiting. This has resolved. The elevated troponin (cardiac enzyme) may be due to a stress response, since your EKG was unchanged and you did not complain of any chest pain. Since all symptoms have resolved, you are medically stable to return home. To prevent this from happening, drink plenty of fluids if you have thrown up or if you have diarrhea. Avoid people who are ill, and continue to see all of your specialists. No Smoking: If you smoke, Please STOP! Call for help. Follow-up with: Gaudencio Lorenzo MD [Primary Care Provider] -
--- NOTE | 2019-10-07 10:45 | DISCHARGE SUMMARY ---
Discharge Summary Admit Date: 10/06/19 Discharge Date: 10/07/19 Discharging Provider: KRISTIE Membreno Primary Care Provider: Gaudencio Lorenzo Condition at Discharge: Good Discharge Disposition: 01 Home, Self Care - DIAGNOSES Admission Diagnoses: Hypotension Lethargy Diarrhea Lactic acidosis Hyponatremia Coronary artery disease CKD (chronic kidney disease), stage III Type 2 diabetes mellitus Hypothyroidism Pulmonary asbestosis History of colon cancer History of lung cancer Discharge Diagnoses with Status of Each Condition: Acute metabolic encephalopathy-Present on admission, resolved Nausea and vomiting-Present prior to admission, no symptoms while in the hospital, resolved Lactic acidosis-Present on admission, resolved Lethargy-Present on admission, improved, nearly resolved Elevated troponin-Present on admission, values remained flat, stable Hypotension-Present on admission, resolved Diarrhea-Resolved Hyponatremia-Resolved Coronary artery disease-Chronic, stable CKD (chronic kidney disease), stage III-Chronic, stable Type 2 diabetes mellitus-Chronic, current HgbA1C is 7.8%, stable Hypothyroidism-Chronic, current TSH 0.93, stable Pulmonary asbestosis-Chronic, stable History of colon cancer-Chronic, stable History of lung cancer-Chronic, stable ARLETTE on CPAP-Chronic, encouraged to get a current sleep study, stable - HPI History of Present Illness: HPI per Dr. Em: This is a 78-year-old male with a history of coronary artery disease status post stenting, type 2 diabetes mellitus, hypertension, history of colon cancer status post hemicolectomy, history of lung cancer status post lobectomy, asbestosis with chronic hemoptysis who presents today complaining of weakness and lethargy. The patient states symptoms began about 2 days ago when he became very weak and lethargic and was unable to ambulate on his own. He required assistance from his . At baseline, he ambulates on his own without assistance. His states that he was very slow to answer questions and pro cess them but that he was not disoriented or confused. She states he has also had low-grade fevers with a temperature of 100 F and this was checked orally. She did give him Tylenol yesterday evening. She states he has had shakes and chills. The patient reports he has been having diarrhea for about the last 5 days. He is only had one bowel movement today and one bowel movement yesterday. He reports no blood in his stool. The stool is soft and not liquid. He reports no recent antibiotic use, hospitalizations, travel. He reports no sick contacts. He has no associated abdominal pain, nausea, vomiting. His appetite has decreased but his had been forcing him to drink water over the past couple of days. He reports no chest pain but is complaining of decreased exercise tolerance and dyspnea with exertion. He has a chronic cough and hemoptysis secondary to the asbestosis. His cough is not worse than usual. Reports no dysuria, urgency, or hematuria. He complains of generalized weakness but no focal deficits. He denies numbness of the extremities. In the emergency department, he is found to be afebrile with a temperature of 36.7 C. He was not tachycardic with a heart rate of 70. His initial blood pressure was 121/95 but it did decrease to the 90 systolic after 2 L of saline. He was tachypneic with a respiratory rate in the high 20s but he was saturating 93% on room air and he reports his baseline is 93 to 94%. CBC showed a normal white count with a normal differentiation. BMP revealed a sodium of 132, anion gap of 14, and creatinine of 1.5. His lactic acid was elevated at 3.9. His troponin was also elevated at 21.6. His urinalysis was unremarkable. A CTA of the chest was negative for pulmonary embolism and did not show an infiltrate. Rapid flu test was also negative. His EKG was not suggestive of ischemia. Given the fact that his blood pressure remained on the lower side despite 2 L of IV fluids and the fact that he has been having fevers at home and now is elevated lactic acid, he will be observed overnight for work-up of possible infection. Of note, I did discuss goals of care with the patient and he would like to be a DNR. - HOSPITAL COURSE Hospital Course: The patient was admitted to the hospital for lethargy, elevated lactic acidosis with the final concluding cause to be from excessive vomiting with nausea from a poor food choice at a restaurant prior to his admission. The elevated lactic acidosis was likely due to a build up of Metformin caused by dehydration since he had been vomiting. This has resolved. The elevated troponin (cardiac enzyme) may be due to a stress response, since his EKG was unchanged and he had no chest pain. A TSH was normal at 0.93, a hemoglobin A1C was 7.8%. No changes to his usual home medications were made. Since all symptoms have resolved, the patient is medically stable to return home. The patient was given Zofran, sent to his pharmacy to prevent this from happening, encouraged to drink plenty of fluids if he had vomiting or diarrhea. He was told to avoid people who are ill, and continue to see all of his specialists. - ALLERGIES Allergies/Adverse Reactions: Allergies Allergy/AdvReac Type Severity Reaction Status Date / Time Tetanus Vaccines and Toxoid AdvReac Unknown Verified 10/06/19 17:44 [Tetanus Vaccines & Toxoid] - MEDICATIONS Home Medications: Ambulatory Orders Medication Instructions Recorded Confirmed Levothyroxine [Synthroid] 100 mcg PO DAILY 04/07/14 10/06/19 Metformin HCl 1,000 mg PO BID 02/10/16 10/07/19 Atorvastatin Calcium 20 mg PO DAILY 12/07/18 10/06/19 Cholecalciferol (Vitamin D3) 1 cap PO DAILY 12/07/18 10/06/19 [Vitamin D3] Felodipine [Felodipine ER] 10 mg PO DAILY 12/07/18 10/06/19 Furosemide [Lasix] 20 mg PO DAILY 12/07/18 10/06/19 Losartan Potassium 50 mg PO DAILY 12/07/18 10/06/19 Metoprolol Succinate [Toprol Xl] 25 mg PO BID 12/07/18 10/07/19 Nitroglycerin 1 tab PO DAILY PRN 12/07/18 10/06/19 Pantoprazole Sodium [Protonix] 40 mg PO DAILY 12/07/18 10/06/19 Turmeric 2 cap PO DAILY 12/07/18 10/06/19 Insulin Glargine,Hum.rec.anlog 36 unit SUBQ DAILY 10/07/19 10/07/19 [Ryan Badillo] Magnesium Oxide [Mag Ox] 400 mg PO BIDWM #60 tablet 10/07/19 Ondansetron HCl [Zofran] 4 mg PO Q4H PRN #30 tablet 10/07/19 Spironolactone 12.5 mg PO DAILY 10/07/19 10/07/19 - PHYSICAL EXAM AT DISCHARGE General Appearance: positive: No acute distress, Alert Eyes Bilateral: positive: PERRL ENT: positive: Pharynx nml, No signs of dehydration Neck: positive: Thyroid nml, No JVD, Trachea midline Respiratory: positive: Chest non-tender, No respiratory distress, Breath sounds nml Cardiovascular: positive: Regular rate & rhythm, No gallop, Systolic murmur, Decreased pulse(s) Peripheral Pulses: positive: 2+ Abdomen: positive: Non-tender, Nml bowel sounds Back: positive: Nml inspection Skin: positive: Color nml, No rash, Warm, Dry Extremities: positive: Non-tender, Full ROM, Nml appearance, No pedal edema Neurologic/Psychiatric: positive: Oriented x3, CN's nml (2-12), Motor nml, Sensation nml, Mood/affect nml Reflexes: Bicep (R): 3+, Bicep (L): 3+ - LABS Result Diagrams: 10/07/19 05:26 10/07/19 05:26 - FOLLOW UP Follow Up: Follow up with your PCP within one week. - TIME SPENT Time Spent in Discharge (Minutes): 55
[2019-10-07] MEDS: HEPARIN 5,000 UNIT/ML VIAL SUBQ SCH (11:00)
[2019-10-07 11:04] LABS: HB2 TOTAL 11.3 g/dL; HEMOGLOBIN A1C 0.7 g/dL; HEMOGLOBIN A1C % 7.8 % (4.6-6.2)
[2019-10-07 11:57] VITALS: BP 137/51
== END 2019-10-07 11:45 | disposition home or self-care (01) ==
LOC: EDUNIT# → ED 16:42 → MS2 19:31
PROVIDERS: ADMIT Internal Medicine; ATTEND Nurse Practitioner
DX: E87.2 Acidosis (principal); G93.41 Metabolic encephalopathy; R11.2 Nausea with vomiting, unspecified; R19.7 Diarrhea, unspecified; E86.0 Dehydration; E87.1 Hypo-osmolality and hyponatremia; I95.9 Hypotension, unspecified; J61 Pneumoconiosis due to asbestos and other mineral fibers; R04.2 Hemoptysis; J43.9 Emphysema, unspecified; E11.22 Type 2 diabetes mellitus with diabetic chronic kidney disease; I12.9 Hypertensive chronic kidney disease with stage 1 through stage 4 chronic kidney disease, or unspecified chronic kidney disease; N18.3 Chronic kidney disease, stage 3 (moderate); E03.9 Hypothyroidism, unspecified; G47.33 Obstructive sleep apnea (adult) (pediatric); R53.83 Other fatigue; R79.89 Other specified abnormal findings of blood chemistry; I25.10 Atherosclerotic heart disease of native coronary artery without angina pectoris; Z66 Do not resuscitate; Z85.038 Personal history of other malignant neoplasm of large intestine; Z85.118 Personal history of other malignant neoplasm of bronchus and lung; Z95.5 Presence of coronary angioplasty implant and graft; Z90.49 Acquired absence of other specified parts of digestive tract; Z90.2 Acquired absence of lung [part of]; N40.0 Benign prostatic hyperplasia without lower urinary tract symptoms; H91.90 Unspecified hearing loss, unspecified ear; G89.29 Other chronic pain; M54.9 Dorsalgia, unspecified; M19.90 Unspecified osteoarthritis, unspecified site; Z87.891 Personal history of nicotine dependence; Z79.84 Long term (current) use of oral hypoglycemic drugs
CPT/HCPCS: 36415; 71275; 80048; 80053; 81003; 83036; 83605; 83690; 83735; 84100; 84443; 84484; 85025; 85610; 87040; 87275; 87276; 93005; 96361; 96372; 96374; 99285; A9270; G0378; J7120; Q9967; 81001; 87086

== ENCOUNTER 2021-05-12 14:06 | Outpatient (CLI) | payer MEDICARE, BC ==
--- NOTE | 2021-05-12 16:08 | XRAY Report ---
PROCEDURE: Chest 2 View X-Ray INDICATIONS: PERSONAL HX OTHER MALIGNANT NEOPLASM BRONCHUS/LUNG TECHNIQUE: 2 view(s) of the chest. COMPARISON: CT of chest dated 10/06/2019. FINDINGS: Surgical changes and devices: None. Lungs and pleura: Advanced centrilobular emphysema is seen. Prominent extensive interstitial lung ret icular markings are noted throughout bilateral lung foy. There is no definite focal infiltrate. No significant pleural effusion or gross pneumothorax. Mediastinum: Mediastinal contours are normal. Heart size is normal. Bones and chest wall: No suspicious bony abnormalities. Soft tissues appear unremarkable. IMPRESSION: 1. 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 No definite focal infiltrate. No signific ant pleural effusion or pneumothorax. Reviewed by: Jabier oCta MD on 05/12/2021 4:06 PM PDT Approved by: Jabier Cota MD on 05/12/2021 4:06 PM PDT Station ID: [id number]
== END 2021-05-12 14:07 | disposition home or self-care (01) ==
LOC: DI 14:06
PROVIDERS: ATTEND Internal Medicine
DX: Z85.118 Personal history of other malignant neoplasm of bronchus and lung (principal); J44.9 Chronic obstructive pulmonary disease, unspecified; J84.9 Interstitial pulmonary disease, unspecified

== ENCOUNTER 2021-05-17 11:11 | Outpatient (CLI) | payer MEDICARE, BC ==
--- NOTE | 2021-05-17 14:45 | Ultrasound Report ---
PROCEDURE: Retroperitoneal INDICATIONS: LEFT FLANK PAIN TECHNIQUE: Real-time scanning was performed of the retroperitoneal organs, with image documentation. COMPARISON: CT abdomen and pelvis dated 03/14/1980 FINDINGS: Kidneys: Kidneys are normal in size. Right kidney measures 10.7 cm long; left kidney measures 10.2 cm long. Right renal cortical thickness is 1.0 cm; left renal cortical thickness is 1.3 cm. No jennie d masses, hydronephrosis, or nephrolithiasis. Bladder: Prevoid bladder volume measures 234 cc. No focal or diffuse wall thickening. Bilateral urete ral jets are noted. Postvoid bladder volume measures 41 cc. Prostate is not well visualized. IMPRESSION: Unremarkable appearance of the kidneys. Postvoid bladder volume of approximately 41 cc. Reviewed by: Jeffrey Pelletier DO on 05/17/2021 1:44 PM LATAS[facility] Approved by: Jeffrey Pelletier DO on 05/17/2021 1:44 PM LATASHA Station ID: [id number]
== END 2021-05-17 11:12 | disposition home or self-care (01) ==
LOC: DI 11:11
PROVIDERS: ATTEND Internal Medicine
DX: R10.9 Unspecified abdominal pain (principal); Z85.118 Personal history of other malignant neoplasm of bronchus and lung

== ENCOUNTER 2021-11-27 10:28 | Outpatient (CLI) | payer MEDICARE, BC ==
[2021-11-27 10:46] LABS: BASOPHILS # (AUTO) 0.1 10^3/uL (0.0-0.1); BASOPHILS % (AUTO) 0.7 %; EOSINOPHILS # (AUTO) 0.4 10^3/uL (0.0-0.7); EOSINOPHILS % (AUTO) 3.8 %; HCT - HEMATOCRIT 40.6 % (42.0-52.0); HGB - HEMOGLOBIN 13.4 g/dL (14.0-18.0); LYMPHOCYTES # (AUTO) 2.5 10^3/uL (1.5-3.5); LYMPHOCYTES % (AUTO) 26.5 %; MEAN CORPUSCULAR HEMOGLOBIN 29.9 pg (27.0-31.0); MEAN CORPUSCULAR VOLUME 90.6 fL (80.0-94.0); MEAN PLATELET VOLUME 9.6 fL (7.4-11.4); MONOCYTES # (AUTO) 0.6 10^3/uL (0.0-1.0); MONOCYTES % (AUTO) 6.6 %; NEUTROPHILS # (AUTO) 5.9 10^3/uL (1.5-6.6); NEUTROPHILS % (AUTO) 62.1 %; PLT - PLATELET COUNT 195 10^3/uL (130-450); RED BLOOD COUNT 4.48 10^6/uL (4.70-6.10); RED CELL DISTRIBUTION WIDTH 12.7 % (12.0-15.0); WHITE BLOOD COUNT 9.5 x10^3/uL (4.8-10.8)
[2021-11-27 11:05] LABS: ALBUMIN 4.3 g/dL (3.2-5.5); ALKALINE PHOSPHATASE 61 IU/L (42-121); ALT ALANINE AMINOTRANSFERASE 23 IU/L (10-60); AST ASPARTATE AMINOTRANSFERASE 27 IU/L (10-42); BILIRUBIN,TOTAL 0.5 mg/dL (0.2-1.0); BUN - BLOOD UREA NITROGEN 30 mg/dL (6-20); CALCIUM 10.2 mg/dL (8.5-10.3); CARBON DIOXIDE - CO2 24 mmol/L (21-32); CHLORIDE 101 mmol/L (101-111); CHOL/HDL RATIO 4.4 (<5.0); CHOLESTEROL 155 mg/dL; CREATININE 1.4 mg/dL (0.6-1.2); GFR - MDRD 49 (>89); GLUCOSE 202 mg/dL (70-100); HDL CHOLESTEROL 35 mg/dL; POTASSIUM 4.9 mmol/L (3.5-5.0); SODIUM 138 mmol/L (135-145); TOTAL PROTEIN 8.8 g/dL (6.7-8.2); TRIGLYCERIDES 551 mg/dL
[2021-11-27 11:34] LABS: LDL CHOLESTEROL,DIRECT 64 mg/dL; LDLD/HDL RATIO 1.8 (<3.6)
[2021-11-27 11:49] LABS: ESTIMATED AVERAGE GLUCOSE 157 mg/dL (70-100); HEMOGLOBIN A1c% 7.1 % (4.27-6.07)
== END 2021-11-27 10:29 | disposition home or self-care (01) ==
LOC: LAB 10:28
PROVIDERS: ATTEND Internal Medicine Cardiovascular Disease
DX: I10 Essential (primary) hypertension (principal)
CPT/HCPCS: 36415; 80053; 80061; 83036; 83721; 83880; 85025

== ENCOUNTER 2021-12-09 10:51 | Outpatient (CLI) | payer MEDICARE, BC ==
[2021-12-09] MEDS ORDERED: REGADENOSON 0.4 MG/5 ML SYRINGE IVP ONE ×2 (12:11→13:49)
--- NOTE | 2021-12-09 13:38 | CARDIAC PROCEDURE NOTE ---
Stress Test Report Service Date: 12/09/21 Service Time: 11:00 Ordering Provider: Tony Machado MD Indication for Test: Assess for ischemia as a contributor to worsening exertional dyspnea in a patient with known CAD. Significant Medical History: Mr. Barron has a history of coronary stent procedures x2, he believes in ~2011 and again in 2018. He recalls having accelerating chest pain prior to the 2018 procedure, which has not recurred in a similar form since that time, though he does mention mild, random, minor episodes of chest discomfort. He has significant history of lung disease with asbestosis, status post partial lung resection and with prn oxygen use. It sounds as if he uses oxygen when short of breath but not based on measurement of sPO2 by oximetry. He reports that his exertional dyspnea has been slowly progressive over the past several months. Cardiac Risk Factors: Positive for known CAD, s/p PCI; diabetes and hyperlipidemia. He denies history of hypertension, family history of CAD and he quit tobacco smoking more than 40 years ago. Type of Stress Test: Pharmacologic Stress Test with MPI Pharmacologic Agent: Lexiscan Procedure: -Pharmacologic Stress Test- After signing informed consent, the patient underwent rest SPECT imaging and then performed a walking Lexiscan pharmacologic stress test. After obtaining resting vital signs and EKG (resting), the patient walked for 2 minutes (without elevation) at 1.0 mph ("baseline") followed by injection of Lexiscan and high dose 99Tc-Myoview with an additional 2 minutes of walking ("peak" reassessment) followed by monitoring for an additional 4 minutes ("recovery"). The test was terminated due to completing the protocol. Resting HR: 75 Baseline HR: 100 Peak HR: 141 Normal HR response to walking/Lexiscan. Resting BP: 137/83 Baseline BP: 153/73 Peak BP: 192/76 Exaggerated systolic BP response to Lexiscan with continued walking. Rhythm during testing: Sinus rhythm throughout, with multiform PVCs, at times occurring in a bigeminal pattern Symptoms: Patient was not especially dyspneic after 2 minutes of walking, but developed marked dyspnea, leg heaviness and slight headache soon after Lexiscan injection; he described NO chest discomfort. The symptoms were nearly fully resolved by 4 minutes of Recovery. EKG at rest showed normal sinus rhythm with possible inferior infarct, age indeterminate, with occasional multiform PVCs.. EKG at peak stress showed no ischemia by EKG criteria. In Recovery heart rate and blood pressure gradually returned to near baseline levels. Nuclear imaging was performed at rest and with stress. The images are reported separately. Colt Norris MD, was present throughout this walking Lexiscan stress study and supervised it in its entirety Summary: 1) Borderline resting EKG. 2) Adequate stress was likely achieved. Lowest confirmed SpO2 was 88% (room air). 3) Abnormal BP response to pharmacologic agent, in the setting of continued slow walking. 4) No ischemic changes by EKG criteria were seen at peak stress. 5) Analysis of gated nuclear images reveals normal left ventricular size and systolic function, LV ejection fraction 57%. SPECT analysis reveals a moderate sized, moderately severe fixed inferolateral perfusion defect, with a slight rim of lateral reversibility; this finding is most suggestive of an infarct with mild periscar ischemia. A small area of anteroseptal ischemia cannot be definitively excluded. See formal Radiologist report for more detail. CONCLUSIONS: 1) Abnormal walking Lexiscan stress myocardial perfusion imaging study, with abnormal BP response and SPECT imaging that reveals an inferolateral infarct with mild periscar ischemia. There is a small area of possible inducible anteroseptal ischemia. 2) SPECT images were reviewed in person with the referring provider, Dr Machado, on 12/11/21.
--- NOTE | 2021-12-10 12:42 | Nuclear Medicine Report ---
PROCEDURE: Rest and pharmacological stress myocardial perfusion SPECT with gated imaging and ejection fraction INDICATIONS: PROGRESSIVE DYSPNA ON EXERTION RADIOPHARMACEUTICAL: 11.5 mCi Tc-99m Myoview IV at rest and 11.5 mCi Tc-99m Myoview IV at peak exerc ise. [id number]-[id number]-poauguvs was performed. TECHNIQUE: Radiopharmaceutical was injected at peak stress test, and also at rest. SPECT images wer e obtained. SPECT myocardial perfusion images were displayed in short axis, horizontal long axis, an d vertical long axis views. Gated images were reviewed using Auto[employer] software. COMPARISON: Report, Myocardial perfusion scan, 08/19/2018. FINDINGS: Raw data: There is good myocardial labeling by radiotracer. No significant motion artifacts. Lung- to-heart ratio is 0.44 (normal is less than 0.46 for tetrafosmin tracer). Left ventricle function: Gated images demonstrate normal left ventricle wall thickening. No segment al wall motion abnormality. No transient ischemic dilation; TID is 0.99 (normal less than 1.30). Th e left ventricle end-diastolic volume is normal. Left ventricle stress ejection fraction is 57%; hugh ues are above 45%. Myocardial perfusion: There is a moderate size, moderately severe, fixed decreased activity in the i nferior lateral wall, suspicious for myocardial infarction. There is no significant reversible perfus ion defect to suggest myocardial ischemia. This is described mild reversible defect in the inferior w all is not seen on the current exam. IMPRESSION: Probably abnormal myocardial perfusion images. 1. There is a moderate sized, moderately severe, fixed defect in the inferior lateral wall, suspiciou s for myocardial infarction. 2. No significant reversible perfusion defect to suggest myocardial ischemia. 3. Normal left ventricular volume. Left ventricle ejection fraction is within normal limits. No trans ient ischemic dilation. 4. Please correlate with stress EKG report. PQRS ATTESTATIONS: Measure 322 - Is this imaging test primarily performed on a low-risk surgery patient for preoperative evaluation within 30 days preceding their low-risk non-cardiac surgery? Low-risk surgery is defined as cardiac or myocardial infarction less than 1%, including (but not limited to) endoscopic pr ocedures, superficial procedures, cataract surgery, and excisional breast surgery: Answer: No Measure 323 - Is this imaging test performed primarily for the monitoring of an asymptomatic patient who had percutaneous coronary intervention on the visit date or within 2 years of the visit date? An swer: No Measure 324 - Is this imaging test performed primarily for the initial detection and risk assessment on an asymptomatic, low coronary heart disease patient? Low CHD risk definition = clinicians should consider the maximum number of available patient factors used to estimate risk based on Dougherty (A TP III criteria), typically age, gender, diabetes, smoking status, and use of blood pressure medicati on, and integrate age appropriate estimates for missing elements, such as LDL or standard blood press ure. Answer: No Reviewed by: Doug Louise MD on 12/10/2021 11:41 AM [facility]AS[facility] Approved by: Doug Louise MD on 12/10/2021 11:41 AM LATAS[facility] Station ID: [id number]
== END 2021-12-09 10:52 | disposition home or self-care (01) ==
LOC: DI 10:51
PROVIDERS: ATTEND Internal Medicine Cardiovascular Disease
DX: R06.09 Other forms of dyspnea (principal); I25.10 Atherosclerotic heart disease of native coronary artery without angina pectoris; I25.2 Old myocardial infarction; E11.9 Type 2 diabetes mellitus without complications; E78.5 Hyperlipidemia, unspecified
CPT/HCPCS: 78452; 93016; 93017; 93018; A9500; J2785

== ENCOUNTER 2022-11-12 05:53 | Day surgery (SDC) | payer MEDICARE, BC ==
[2022-11-12] MEDS ORDERED: CYCLOPENTOLATE 1% OPHTH DROPS 2 ML ONE (06:16)
[2022-11-12] MEDS ORDERED: PROPARACAINE 0.5% OPHTH DROPS 15 ML ONE (06:16)
[2022-11-12] MEDS ORDERED: KETOROLAC 0.45% OPHTH DROPS ONE (06:16)
[2022-11-12] MEDS ORDERED: PHENYLEPHRINE 2.5% OPHTH 2 ML DROPS ONE (06:16)
[2022-11-12] MEDS ORDERED: LACTATED RINGERS 1,000 ML IV ONE (06:26)
[2022-11-12] MEDS ORDERED: TRIAMCIN/MOXIFLOX OPHTHALMIC 0.6 ML VIAL IO ONE ×2 (07:01→07:40)
[2022-11-12] MEDS ORDERED: BRIMONIDINE 0.2% OPHTH DROPS 5 ML ONE (07:01)
[2022-11-12] MEDS ORDERED: EPINEPHrine 1 MG/ML AMP ONE (07:01)
[2022-11-12] MEDS ORDERED: VANCOMYCIN OPHTH (TOPICAL) 10 MG/ML SYRINGE ONE (07:01)
[2022-11-12] MEDS ORDERED: TIMOLOL 0.5% OPHTH DROPS ONE (07:01)
[2022-11-12] MEDS ORDERED: BSS/LIDOCAINE/EPINEPHRINE 1 ML VIAL ONE (07:01)
[2022-11-12] MEDS ORDERED: MIDAZOLAM 2 MG/2 ML VIAL ONE (07:11)
[2022-11-12] MEDS ORDERED: BRIMONIDINE 0.2% OPHTH DROPS 5 ML OPTH ONE (07:39)
[2022-11-12] MEDS ORDERED: EPINEPHrine 1 MG/ML AMP IR ONE (07:39)
[2022-11-12] MEDS ORDERED: TIMOLOL 0.5% OPHTH DROPS OPTH ONE (07:39)
[2022-11-12] MEDS ORDERED: VANCOMYCIN OPHTH (TOPICAL) 10 MG/ML SYRINGE TOP ONE (07:40)
[2022-11-12] MEDS ORDERED: BSS/LIDOCAINE/EPINEPHRINE 1 ML SYRINGE IO ONE (07:40)
[2022-11-12] MEDS ORDERED: PROPARACAINE 0.5% OPHTH DROPS 15 ML LEFTEYE ONE (07:40)
--- NOTE | 2022-11-12 07:43 | ANESTHESIA ---
Pre-Anesthesia VS, & Labs - Diagnosis L cataract - Procedure L PhacoIOL Height: 5 ft 4 in Weight (kg): 69 kg Body Mass Index: 26.1 BMI Classification: Overweight - NPO >8 hours - Lab Results Current Lab Results: Laboratory Tests 11/12/22 06:34: POC Whole Bld Glucose 118 H Home Medications and Allergies Levothyroxine [Synthroid] 100 mcg PO DAILY 04/07/14 Metformin HCl 1,000 mg PO BID 02/10/16 Atorvastatin Calcium 20 mg PO DAILY 12/07/18 Cholecalciferol (Vitamin D3) [Vitamin D3] 1 cap PO DAILY 12/07/18 Felodipine [Felodipine ER] 10 mg PO DAILY 12/07/18 Furosemide [Lasix] 20 mg PO DAILY 12/07/18 Losartan Potassium 50 mg PO DAILY 12/07/18 Metoprolol Succinate [Toprol Xl] 25 mg PO BID 12/07/18 Nitroglycerin 1 tab PO DAILY PRN 12/07/18 Pantoprazole Sodium [Protonix] 40 mg PO DAILY 12/07/18 Turmeric 2 cap PO DAILY 12/07/18 Insulin Glargine,Hum.rec.anlog [Totoma Solbakari] 36 unit SUBQ DAILY 10/07/19 Spironolactone 12.5 mg PO DAILY 10/07/19 Allergies/Adverse Reactions: Allergies Allergy/AdvReac Type Severity Reaction Status Date / Time Tetanus Vaccines and Toxoid AdvReac Unknown Verified 08/07/20 11:05 [Tetanus Vaccines & Toxoid] Anes History & Medical History - Anesthetic History Anesthesia Complications: reports: No previous complications Family history of Anesthesia Complications: Denies Family history of Malignant Hyperthermia: Denies - Medical History Cardiovascular: reports: Hypertension, High cholesterol, Coronary artery disease, Other (PCI stents x2, last 4 yrs ago) Pulmonary: reports: Emphysema, Other (L lung removal, and partial R lung removal, asbestos, uses home O2) Gastrointestinal: reports: GERD, Colon polyps Urinary: reports: Benign prostate hypertrophy, Kidney stones Neuro: reports: None Musculoskeletal: reports: Osteoarthritis, Chronic back pain Endocrine/Autoimmune: reports: HyPOthyroidism Skin: reports: None Smoking Status: Former smoker - Surgical History General: reports: Bowel surgery, Colonoscopy, Other Cardiothoracic: reports: Coronary stent, Lobectomy, Other (Total L lung removal, R lobectomy) Exam General: Alert, Oriented x3, Cooperative Dental: WNL Mouth Openin Fingerbreadth Neck Mobility: Normal Mallampati classification: II Thyromental Distance: 4-6 cm Respiratory: Lungs clear Cardiovascular: Regular rate Plan Anesthesia Type: MAC Consent for Procedure(s) Verified and Reviewed: Yes Code Status: Attempt Resuscitation ASA classification: 3-Severe systemic disease Is this case an emergency?: No
[2022-11-12] MEDS ORDERED: LACTATED RINGERS 900 ML IV ONE (08:00)
--- NOTE | 2022-11-12 08:05 | OPERATIVE REPORT ---
Operative Report - Other Other Information/Narrative: Date of Surgery: 11/12/22 Preop Dx: Visually significant cataract left eye. This was the first cataract surgery. Postop Dx: Same Procedure: Phacoemulsification with posterior chamber toric intraocular lens implant left eye Surgeon: Dr. 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 Best tyler ected visual acuity was 20/30 with glare to 20/100 vision in the left eye. Indications for surgery were: - Overall decrease in vision - Difficulty reading - Difficulty seeing words, closed captions, or game scores on TV - Difficulty driving in low light or at night - Difficulty with glare or bright lights in any situation The patient was consented at length concerning the risks and benefits of cataract surgery after which the patient expressed a desire to proceed with surgery. Operative Procedure: The patients cornea was marked in the pre-surgical area to indicate the axis for the toric intraocular lens. The patient was taken into OR#3 and placed under monitored anesthesia care. A surgical time-out was conducted confirming correct patient, correct procedure, and correct surgical site. The patient was given topical anesthesia and then prepped and draped in the usual sterile fashion. The eye was entered at the 6 and 3 oclock positions. Intracameral Shugarcaine was injected into the anterior chamber followed by a dispersive viscoelastic. A continuous-tear curvilinear capsulorhexis was performed. The nucleus was hydrodissected and phacoemulsified. The cortex was evacuated using automated infusion and aspiration. A cohesive viscoelastic was injected into the capsular bag and a 23.5 diopter toric intraocular lens was inserted into the bag and rotated to axis 172. Infusion and aspiration were used to evacuate the viscoelastic materials from the eye and the IOL was verified to remain on axis. The wounds were hydrated and the eye inflated to physiologic pressure using balanced salt solution. Approximately 0.25ml of a mixture of triamcinolone and moxifloxacin was injected trans- sclerally into the vitreous in the inferotemporal quadrant using a 30 gauge cannula. An additional 0.25ml of a mixture of triamcinolone and moxifloxacin was injected subconjunctivally in the superior quadrant for infection and inflammation prophylaxis. Wound integrity was checked with Weck-Kathleen sponges and the IOL axis was once again verified to be on the correct axis. The patient was taken from the operating room in good condition and given post-op instructions.
[2022-11-12 08:19] VITALS: BP 126/51
--- NOTE | 2022-11-17 07:29 | ANESTHESIA POST OP EVALUATION ---
Anesthesia Post Eval - Post Anesthesia Eval Vitals: Last Vital Signs Temp 36 C L 11/12/22 08:18 Pulse 56 L 11/12/22 08:18 Resp 18 11/12/22 08:18 BP 126/51 L 11/12/22 08:18 Pulse Ox 98 11/12/22 08:18 O2 Flow Rate CV Function Including HR & BP: Stable Pain Control: Satisfactory Nausea & Vomiting: Negative Mental Status: Baseline Respiratory Status: Airway Patent Hydration Status: Satisfactory Anesthesia Complications: None
== END 2022-11-12 05:54 | disposition home or self-care (01) ==
LOC: SDS 05:53
PROVIDERS: ATTEND Ophthalmology
DX: E11.36 Type 2 diabetes mellitus with diabetic cataract (principal); H25.812 Combined forms of age-related cataract, left eye; N40.0 Benign prostatic hyperplasia without lower urinary tract symptoms; I25.10 Atherosclerotic heart disease of native coronary artery without angina pectoris; J43.9 Emphysema, unspecified; Z79.84 Long term (current) use of oral hypoglycemic drugs
CPT/HCPCS: 66984; A9270; J3490; J7120; V2632; V2787

== ENCOUNTER 2023-09-06 10:22 | Outpatient (CLI) | payer MEDICARE, BC ==
[2023-09-06 10:51] LABS: CALCIUM 9.9 mg/dL (8.5-10.3); CREATININE 1.7 mg/dL (0.6-1.3); POTASSIUM 4.4 mmol/L (3.5-4.5)
[2023-09-06] MEDS ORDERED: iohexoL-300 100 ML VIAL ONE (11:12)
--- NOTE | 2023-09-06 12:57 | CT Report ---
PROCEDURE: Soft Tissue Neck W INDICATIONS: DYSPHAGIA CONTRAST: Omni 300 100ml TECHNIQUE: After the administration of intravenous contrast, 3.0 mm axial sections acquired from the sella to th e aortic arch. Additional oblique axial 3.0 mm sections acquired through the pharynx. 3 mm thick co radha reformats were generated. For radiation dose reduction, the following was used: automated exp osure control, adjustment of mA and/or kV according to patient size. COMPARISON: 03/21/2017. Correlation is made with the overlapping portions of chest CT, 10/06/2019. FINDINGS: Image quality: Excellent. Lymph nodes: No enlarged lymph nodes seen throughout the neck. Borderline prominent mediastinal lymp h nodes can be seen. Vessels: Visualized vasculature appears patent. Neck spaces: There is moderate wall thickening seen within the visualized superior esophagus, as on series 2 image 84. The oropharynx, nasopharynx, and pharynx demonstrate no mucosal lesions. The vocal cords, false voca l cords, pyriform sinuses, epiglottis, vallecula, and tongue base all appear normal. Extramucosal sp aces appear unremarkable. Glands: The parotid and submandibular glands appear normal. The thyroid is small in size and only f aintly seen. Miscellaneous: Visualized brain and orbits appear normal. Emphysematous changes are seen, with subpl eural bulla formation and subpleural fibrosis with honeycombing. Superficial soft tissues appear norm al. Bones: No suspicious bony lesions. Visualized sinuses and mastoids appear unremarkable. IMPRESSION: Moderate wall thickening can be seen involving the superior esophagus. If clinically appropriate, ple ase consider a follow-up upper endoscopy versus barium swallow for further evaluation. Poorly prominent mediastinal lymph nodes can be seen. No enlarged lymph nodes are seen within the neck. Within the lung apices, emphysematous changes are seen, with subpleural bleb formation and subpleural fibrotic change. Additional findings: Small thyroid size Emphysematous changes Reviewed by: Garrison Barcenas MD on 09/06/2023 11:56 AM [place] Approved by: Garrison Barcenas MD on 09/06/2023 11:56 AM [place] Station ID: [id number]
[2023-09-06] MEDS: iohexoL-300 100 ML VIAL IVP ONE (14:23)
== END 2023-09-06 10:23 | disposition home or self-care (01) ==
LOC: LAB 10:22
PROVIDERS: ATTEND Internal Medicine
DX: E11.9 Type 2 diabetes mellitus without complications (principal); R13.13 Dysphagia, pharyngeal phase; R09.A2 Foreign body sensation, throat; J43.9 Emphysema, unspecified; J84.10 Pulmonary fibrosis, unspecified
CPT/HCPCS: 36415; 70491; 80048; Q9967

== ENCOUNTER 2024-03-12 04:32 | Outpatient (CLI) | payer MEDICARE, BC | END 2024-03-12 23:59 | disposition EMS.NT | LOC: EMS 04:32 | DX: Z03.89 Encounter for observation for other suspected diseases and conditions ruled out (principal) ==

== ENCOUNTER 2024-03-12 16:53 | Outpatient (CLI) | payer MEDICARE, BC | END 2024-03-12 23:59 | disposition critical access hospital (66) | LOC: EMS 16:53 | DX: R06.02 Shortness of breath (principal); R46.4 Slowness and poor responsiveness; R05.9 Cough, unspecified; R00.0 Tachycardia, unspecified; R25.1 Tremor, unspecified; Z99.81 Dependence on supplemental oxygen; R50.9 Fever, unspecified | CPT/HCPCS: A0425; A0427 ==

== ENCOUNTER 2024-03-12 17:17 | Emergency (ER) | payer MEDICARE, BC ==
[2024-03-12 17:55] LABS: VBG HCO3 20.6 mmol/L (23-28); VBG PH 7.469 (7.31-7.41); VBG PO2 45.6 mmHg (25-47)
[2024-03-12 17:56] LABS: BASOPHILS % (AUTO) 0.2 %; HCT - HEMATOCRIT 32.9 % (42.0-52.0); HGB - HEMOGLOBIN 10.9 g/dL (14.0-18.0); LYMPHOCYTES # (AUTO) 0.4 10^3/uL (1.5-3.5); LYMPHOCYTES % (AUTO) 2.8 %; MEAN CORPUSCULAR HEMOGLOBIN 29.5 pg (27.0-31.0); MEAN CORPUSCULAR HGB CONC 33.1 g/dL (32.0-36.0); MEAN CORPUSCULAR VOLUME 89.2 fL (80.0-94.0); MEAN PLATELET VOLUME 9.7 fL (7.4-11.4); MONOCYTES # (AUTO) 0.7 10^3/uL (0.0-1.0); MONOCYTES % (AUTO) 5.1 %; NEUTROPHILS % (AUTO) 91.1 %; PLT - PLATELET COUNT 187 10^3/uL (130-450); RED BLOOD COUNT 3.69 10^6/uL (4.70-6.10); RED CELL DISTRIBUTION WIDTH 13.5 % (12.0-15.0); VBG BASE EXCESS -2.1 mmol/L (-2 - +2); VBG OXYGEN SATURATION 82.5 % (60-80); VBG TOTAL CO2 21.5 mmol/L (24-29); WHITE BLOOD COUNT 13.2 x10^3/uL (4.8-10.8)
[2024-03-12 18:10] LABS: ALBUMIN 3.5 g/dL (3.2-5.5); ALBUMIN/GLOBULIN RATIO 0.8 (1.0-2.2); CALCIUM 9.5 mg/dL (8.5-10.3); CREATININE 1.6 mg/dL (0.6-1.3); POTASSIUM 4.6 mmol/L (3.5-4.5); TOTAL PROTEIN 7.7 g/dL (6.4-8.9)
--- NOTE | 2024-03-12 18:17 | XRAY Report ---
PROCEDURE: Chest 1V INDICATIONS: sob TECHNIQUE: One view of the chest was acquired. COMPARISON: None. FINDINGS: Surgical changes and devices: None. Lungs and pleura: There is extensive interstitial thickening and scarring which is unchanged. There is no focal consolidation or effusion. Mediastinum: Mediastinal contours appear normal. Heart size is normal. Bones and chest wall: No suspicious bony lesions. Overlying soft tissues appear unremarkable. IMPRESSION: Severe chronic lung disease without acute process. Reviewed by: Mary Grace Villegas MD on 03/12/2024 5:16 PM AKDT Approved by: Mary Grace Villegas MD on 03/12/2024 5:16 PM AKDT Station ID: [id number]
[2024-03-12 18:19] LABS: INR 1.5 (0.8-1.2)
[2024-03-12 18:31] LABS: BILIRUBIN,URINE NEGATIVE (NEGATIVE); CLARITY,URINE HAZY (CLEAR); GLUCOSE, URINE (UA) NEGATIVE (NEGATIVE); KETONES,URINE (UA) TRACE mg/dL (NEGATIVE); LEUKOCYTE ESTERASE, URINE SMALL (NEGATIVE); NITRITE,URINE NEGATIVE (NEGATIVE); OCCULT BLOOD,URINE MODERATE (NEGATIVE); PH,URINE 5.5 PH (5.0-7.5); PROTEIN,URINE 100 mg/dL (NEGATIVE); UROBILINOGEN,URINE 0.2 (NORMAL) E.U./dL (NORMAL)
--- NOTE | 2024-03-12 18:38 | ED Physician Documentation ---
History of Present Illness - Stated complaint Stated Complaint: SOA - Chief complaint Chief Complaint: Resp - Additonal information Additional information: Patient is an 83-year-old male presenting to the emergency department with symptoms of shortness of breath patient was hypoxic to 70% on EMS arrival he was put on 6 L nasal cannula and improved to 92%. Patient is on 2 to 3 L nasal cannula at baseline. On arrival patient is ANO x 2 in no acute distress. Patient able to answer questions and follow commands. Discussed with family members patient was having similar symptoms yesterday hypoxic to 70s yesterday on 2 L nasal cannula. Patient continues to have shortness of breath symptoms but no new cough, fever, leg swelling, chest pain symptoms. Patient has past medical history of hypertension, type 2 diabetes, history of colon cancer, history of mesothelioma secondary to asbestos. PD PAST MEDICAL HISTORY - Past Medical History Past Medical History: Yes Cardiovascular: Hypertension, High cholesterol, Coronary artery disease, Other Respiratory: Emphysema, Other Neuro: None Endocrine/Autoimmune: HyPOthyroidism GI: GERD, Colon polyps : Benign prostate hypertrophy, Kidney stones HEENT: Chronic hearing loss, Dental implants, Other Psych: None Musculoskeletal: Osteoarthritis, Chronic back pain Derm: None Other Past Medical History: lung cancer. - Past Surgical History Past Surgical History: Yes General: Bowel surgery, Colonoscopy, Other Cardiovascular: Coronary stent, Lobectomy, Other - Present Medications Home Medications: Ambulatory Orders Medication Instructions Recorded Confirmed Levothyroxine [Synthroid] 100 mcg PO DAILY 04/07/14 03/12/24 Metformin HCl 1,000 mg PO BID 02/10/16 03/12/24 Atorvastatin Calcium 20 mg PO DAILY PM 12/07/18 03/12/24 Cholecalciferol (Vitamin D3) 1 cap PO DAILY 12/07/18 03/12/24 [Vitamin D3] Felodipine [Felodipine ER] 10 mg PO DAILY 12/07/18 03/12/24 Furosemide [Lasix] 20 mg PO DAILY 12/07/18 02/14/24 Losartan Potassium 50 mg PO DAILY 12/07/18 03/12/24 Metoprolol Succinate [Toprol Xl] 25 mg PO BID 12/07/18 03/12/24 Nitroglycerin 1 tab PO DAILY PRN 12/07/18 03/12/24 Pantoprazole Sodium [Protonix] 40 mg PO DAILY 12/07/18 03/12/24 Turmeric 1 cap PO BID 12/07/18 03/12/24 Insulin Glargine,Hum.rec.anlog 36 unit SUBQ DAILY 10/07/19 03/12/24 [Ryan Fairbanksbakari] Aspirin EC [Ecotrin] 81 mg pe ORAL BID 03/12/24 03/12/24 Famotidine [Pepcid] 20 mg PO BID 03/12/24 03/12/24 Multivitamin 1 each PO DAILY 03/12/24 03/12/24 - Allergies Allergies/Adverse Reactions: Allergies Allergy/AdvReac Type Severity Reaction Status Date / Time Tetanus Vaccines and Toxoid AdvReac Unknown Verified 03/12/24 17:29 [Tetanus Vaccines & Toxoid] - Social History Does the pt smoke?: No Smoking Status: Never smoker Does the pt drink ETOH?: No Does the pt have substance abuse?: No - Immunizations Immunizations are current?: Yes - POLST Patient has POLST: No PD ED PE NORMAL - Vitals Vital signs reviewed: Yes - General General: No acute distress - HEENT HEENT: Atraumatic - Neck Neck: Supple, no meningeal sign, No JVD - Cardiac Cardiac: RRR, No murmur, No gallop, No rub - Respiratory Respiratory: No respiratory distress, Clear bilaterally - Abdomen Abdomen: Normal bowel sounds, Non tender, Non distended - Back Back: No CVA TTP - Derm Derm: Normal color, No rash - Neuro Neuro: Alert and oriented X 3 Results - Vitals Vitals: Vital Signs - 24 hr 03/12/24 03/12/24 03/12/24 17:29 18:02 18:30 Temperature 37.4 C Heart Rate 112 H 92 83 Respiratory 32 H 28 H 32 H Rate Blood Pressure 127/60 132/71 H 119/69 O2 Saturation 94 94 94 If not protocol 2 2 : Oxygen Flow, liters/minute 03/12/24 03/12/24 03/12/24 19:00 19:30 20:00 Temperature Heart Rate 81 84 74 Respiratory 17 20 17 Rate Blood Pressure 128/80 117/80 108/64 O2 Saturation 92 92 94 If not protocol 2 2 2 : Oxygen Flow, liters/minute 03/12/24 03/12/24 03/12/24 20:30 21:00 21:30 Temperature Heart Rate 75 74 69 Respiratory 16 15 16 Rate Blood Pressure 127/84 H 120/61 120/61 O2 Saturation 94 91 L 94 If not protocol 2 2 : Oxygen Flow, liters/minute Oxygen O2 Source Nasal cannula Oxygen Flow Rate 2 - Labs Labs: Laboratory Tests 03/12/24 03/12/24 03/12/24 17:50 17:50 17:50 WBC 13.2 H RBC 3.69 L Hgb 10.9 L Hct 32.9 L MCV 89.2 MCH 29.5 MCHC 33.1 RDW 13.5 Plt Count 187 MPV 9.7 Neut # (Auto) 12.0 H Lymph # (Auto) 0.4 L Payne # (Auto) 0.7 Eos # (Auto) 0.0 Baso # (Auto) 0.0 Absolute Nucleated RBC 0.00 Nucleated RBC % 0.0 PT 16.0 H INR 1.5 H VBG pH VBG pCO2 VBG pO2 VBG HCO3 VBG Total CO2 VBG O2 Saturation VBG Base Excess Sodium 133 L Potassium 4.6 H Chloride 101 Carbon Dioxide 22 Anion Gap 10.0 BUN 27 H Creatinine 1.6 H Estimated GFR (MDRD) 41 L Glucose 197 H Lactic Acid Calcium 9.5 Total Bilirubin 1.0 AST 20 ALT 11 Alkaline Phosphatase 65 Troponin I High Sens Total Protein 7.7 Albumin 3.5 Globulin 4.2 Albumin/Globulin Ratio 0.8 L Urine Color Urine Clarity Urine pH Ur Specific [place] Urine Protein Urine Glucose (UA) Urine Ketones Urine Occult Blood Urine Nitrite Urine Bilirubin Urine Urobilinogen Ur Leukocyte Esterase Urine RBC Urine WBC Ur Squamous Epith Cells Urine Bacteria Ur Microscopic Review Urine Culture Comments Nasal Adenovirus (PCR) Nasal B. parapertussis DNA (PCR) Nasal Coronavir 229E PCR Nasal Coronavir HKU1 PCR Nasal Coronavir NL63 PCR Nasal Coronavir OC43 PCR Nasal Enterovir/Rhinovir PCR Nasal Influenza B PCR Nasal Influenza A PCR Nasal Parainfluen 1 PCR Nasal Parainfluen 2 PCR Nasal Parainfluen 3 PCR Nasal Parainfluen 4 PCR Nasal RSV (PCR) Nasal B.pertussis DNA PCR Nasal C.pneumoniae (PCR) Delvin Human Metapneumo PCR Nasal M.pneumoniae (PCR) Nasal SARS-CoV-2 (PCR) 03/12/24 03/12/24 03/12/24 17:50 17:50 17:55 WBC RBC Hgb Hct MCV MCH MCHC RDW Plt Count MPV Neut # (Auto) Lymph # (Auto) Payne # (Auto) Eos # (Auto) Baso # (Auto) Absolute Nucleated RBC Nucleated RBC % PT INR VBG pH 7.469 H VBG pCO2 29.0 L VBG pO2 45.6 VBG HCO3 20.6 L VBG Total CO2 21.5 L VBG O2 Saturation 82.5 H VBG Base Excess -2.1 L Sodium Potassium Chloride Carbon Dioxide Anion Gap BUN Creatinine Estimated GFR (MDRD) Glucose Lactic Acid Calcium Total Bilirubin AST ALT Alkaline Phosphatase Troponin I High Sens 48.9 H* Total Protein Albumin Globulin Albumin/Globulin Ratio Urine Color Urine Clarity Urine pH Ur Specific [place] Urine Protein Urine Glucose (UA) Urine Ketones Urine Occult Blood Urine Nitrite Urine Bilirubin Urine Urobilinogen Ur Leukocyte Esterase Urine RBC Urine WBC Ur Squamous Epith Cells Urine Bacteria Ur Microscopic Review Urine Culture Comments Nasal Adenovirus (PCR) NOT DETECTED Nasal B. parapertussis DNA (PCR) NOT DETECTED Nasal Coronavir 229E PCR NOT DETECTED Nasal Coronavir HKU1 PCR NOT DETECTED Nasal Coronavir NL63 PCR NOT DETECTED Nasal Coronavir OC43 PCR NOT DETECTED Nasal Enterovir/Rhinovir PCR NOT DETECTED Nasal Influenza B PCR NOT DETECTED Nasal Influenza A PCR NOT DETECTED Nasal Parainfluen 1 PCR NOT DETECTED Nasal Parainfluen 2 PCR NOT DETECTED Nasal Parainfluen 3 PCR NOT DETECTED Nasal Parainfluen 4 PCR NOT DETECTED Nasal RSV (PCR) NOT DETECTED Nasal B.pertussis DNA PCR NOT DETECTED Nasal C.pneumoniae (PCR) NOT DETECTED Delvin Human Metapneumo PCR NOT DETECTED Nasal M.pneumoniae (PCR) NOT DETECTED Nasal SARS-CoV-2 (PCR) NOT DETECTED 03/12/24 03/12/24 03/12/24 18:04 18:15 19:24 WBC RBC Hgb Hct MCV MCH MCHC RDW Plt Count MPV Neut # (Auto) Lymph # (Auto) Payne # (Auto) Eos # (Auto) Baso # (Auto) Absolute Nucleated RBC Nucleated RBC % PT INR VBG pH VBG pCO2 VBG pO2 VBG HCO3 VBG Total CO2 VBG O2 Saturation VBG Base Excess Sodium Potassium Chloride Carbon Dioxide Anion Gap BUN Creatinine Estimated GFR (MDRD) Glucose Lactic Acid 2.2 Calcium Total Bilirubin AST ALT Alkaline Phosphatase Troponin I High Sens 50.0 H* Total Protein Albumin Globulin Albumin/Globulin Ratio Urine Color YELLOW Urine Clarity HAZY Urine pH 5.5 Ur Specific [place] >=1.030 H Urine Protein 100 H Urine Glucose (UA) NEGATIVE Urine Ketones TRACE Urine Occult Blood MODERATE H Urine Nitrite NEGATIVE Urine Bilirubin NEGATIVE Urine Urobilinogen 0.2 (NORMAL) Ur Leukocyte Esterase SMALL H Urine RBC 0-5 Urine WBC 11-25 H Ur Squamous Epith Cells RARE Squamous Urine Bacteria Many H Ur Microscopic Review INDICATED Urine Culture Comments INDICATED Nasal Adenovirus (PCR) Nasal B. parapertussis DNA (PCR) Nasal Coronavir 229E PCR Nasal Coronavir HKU1 PCR Nasal Coronavir NL63 PCR Nasal Coronavir OC43 PCR Nasal Enterovir/Rhinovir PCR Nasal Influenza B PCR Nasal Influenza A PCR Nasal Parainfluen 1 PCR Nasal Parainfluen 2 PCR Nasal Parainfluen 3 PCR Nasal Parainfluen 4 PCR Nasal RSV (PCR) Nasal B.pertussis DNA PCR Nasal C.pneumoniae (PCR) Delvin Human Metapneumo PCR Nasal M.pneumoniae (PCR) Nasal SARS-CoV-2 (PCR) PD Medical Decision Making - ED course Complexity details: reviewed old records, reviewed results, re-evaluated patient ED course: Patient is an 83-year-old male presenting to the emergency department with symptoms of shortness of breath patient was hypoxic to 70% here in the emergency department but improved better to 6 L nasal cannula. Patient is on 2 to 3 L at baseline secondary to history of mesothelioma. Vitals improved with oxygen tachycardia resolved here in the emergency department. Labs obtained showed mild leukocytosis of 13.1. Patient's creatinine is at 1.6 with GFR in the 40s. This appears to be patient's baseline according to family members from recent labs. Patient also notably had elevated troponin at 48.9 but no EKG changes. Repeat troponin here in emergency department after 2 hours showed no significant change with repeat troponin in the 50s. Patient continues to deny any chest pain. VBG was obtained does show alkalosis with compensation however patient improving oxygenation status on nasal cannula and in no acute respiratory distress at this time. Discussed with family members chest x-ray shows severe lung disease with no focal consolidations. Given troponin continues to climb up possible need for admission for patient troponin scores to peak. Discussed with family they are agreeable to further evaluation in the emergency department. Given concerning hypoxia sudden onset and tachycardia will obtain CT PE. Family members are understandable that this could worsen kidney function but patient has good enough kidney function to have CT PE done at this time. Discussed with Dr. Scruggs at [facility] patient will be further evaluated by with CT/PE 2200: Patient at 3 L nasal cannula saturating at 92% in no acute distress no tachycardia appreciated at this time. 2215: Patient taken over by Dr. Lewis Departure - Departure Forms: PCP List
[2024-03-12 18:49] LABS: BACTERIA,URINE Many /HPF (None Seen); RBC,URINE 0-5 /HPF (0-5); SQUAMOUS EPITHELIAL CELL,UR RARE Squamous (<= Few)
[2024-03-12 18:51] LABS: B. PARAPERTUSSIS- RESP PCR PAN NOT DETECTED; B. PERTUSSIS- RESP PCR PANEL NOT DETECTED; C. PNEUMONIAE- RESP PCR PANEL NOT DETECTED; CORONAVIRUS 229E-RESP PCR NOT DETECTED; CORONAVIRUS HKU1-RESP PCR NOT DETECTED; CORONAVIRUS NL63-RESP PCR NOT DETECTED; CORONAVIRUS OC43-RESP PCR NOT DETECTED; HUMAN METAPNEUMOVIRUS NOT DETECTED; INFLUENZA A- RESP PCR PANEL NOT DETECTED; INFLUENZA B - RESP PCR PANEL NOT DETECTED; M. PNEUMONIAE- RESP PCR PANEL NOT DETECTED; PARAINFLUENZA VIRUS 1 NOT DETECTED; PARAINFLUENZA VIRUS 2 NOT DETECTED; PARAINFLUENZA VIRUS 3 NOT DETECTED; PARAINFLUENZA VIRUS 4 NOT DETECTED; RHINOVIRUS/ENTEROVIRUS NOT DETECTED; RSV- RESP PCR PANEL NOT DETECTED; SARS-CoV-2 -RESP PCR PANEL NOT DETECTED
[2024-03-12] MEDS: SODIUM CHLORIDE 0.9% 1,000 ML IV STA (18:54)
[2024-03-12] MEDS ORDERED: iohexoL-300 100 ML VIAL ONE (22:53)
--- NOTE | 2024-03-13 00:01 | CT Report ---
PROCEDURE: Angio Chest INDICATIONS: evaluate for pe CONTRAST: 100 ML OMNI 300 TECHNIQUE: After the administration of intravenous contrast, 2 mm axial images were acquired from the pulmonary apices to the posterior costophrenic angles during the arterial phase. In addition, 1 mm lung kernel and 5 mm soft tissue kernel reconstructions were performed. 3-dimensional coronal oblique maximum int ensity projection (MIP) reformats, 8 mm axial MIP, and 5 mm coronal and sagittal MPR reformats were t hen performed through the thorax. For radiation dose reduction, the following was used: automated exp osure control, adjustment of mA and/or kV according to patient size. COMPARISON: 03/12/2024, 12/06/2019, 09/06/2023 FINDINGS: Image quality: Excellent. Large vessels: There is a filling defect within the segmental artery of the right lung apex (series 4 , image 32). Lungs and pleura: Substantial paraseptal emphysema and moderate centrilobular emphysema. 3.6 x 1.9 cm rounded subpleural nodularity in the superior left lower lobe (series 6, image 39), new from chest C T dated 12/06/2019, increased in size compared with neck CT dated 09/06/2023. No pleural effusions. No p neumothorax. Stable nodularity within the right lung apex airway measuring 7 mm (series 6, image 24). Mediastinum: Heart size is enlarged. No pericardial effusion. No large vessel abnormality. No mediast inal adenopathy by size criteria. Three-vessel coronary artery calcifications. Small hiatal hernia. Chest wall and lower neck: Thyroid is unremarkable. No axillary or supraclavicular adenopathy by size . Bones: No aggressive osseous abnormality. Upper Abdomen: Cirrhosis. Cholelithiasis. IMPRESSION: Small burden of segmental pulmonary embolism in the superior right upper lobe. No evidence for strain or infarct. Growing subpleural nodularity in the superior left lower lobe. Recommend outpatient PET CT to exclude malignancy. Stable endobronchial nodularity in the right lung apex compared with 2023. Three-month follow-up shou ld be considered. Cholelithiasis without evidence of acute cholecystitis. Cirrhosis. Reviewed by: Nitesh Herndon MD on 03/12/2024 11:59 PM PDT Approved by: Nitesh Herndon MD on 03/12/2024 11:59 PM PDT Station ID: [id number]
[2024-03-13] MEDS: iohexoL-300 100 ML VIAL IVP ONE (01:45)
--- NOTE | 2024-03-13 05:29 | ED Physician Documentation ---
ED Addendum - Addendum Addendum: 03/13/24 05:26 Care of patient signed out to me by evening provider. Patient reassessed, he is resting comfortably in bed, sleeping soundly, oxygen saturations stable on [address] angio positive for right segmental pulmonary embolism. Patient continues to sleep, but results were discussed with patient and family at bedside. They state that 1 year ago patient had extensive history of hemoptysis, coughing up multiple blood clots multiple times per day without cause identified. Patient was not on blood thinners at that time. Attempted to consult patient's design engineer [employer], however we were informed that they do not take consults after hours and would not be available until 8 AM. Attempted to consult other pulmonology groups, however since their hospitals are currently full they are not taking any new consults. Patient to be monitored in the morning when pulmonology can be consulted over risks versus benefits of starting anticoagulation given patient's history of hemoptysis. Duplex venous scans ordered for the morning for additional assessment.
[2024-03-13 07:02] VITALS: O2SAT 95
--- NOTE | 2024-03-13 09:58 | Ultrasound Report ---
PROCEDURE: Duplex Ext Veins Bilateral INDICATIONS: Luana Porath TECHNIQUE: Real-time imaging, as well as color and pulse Doppler interrogation, were performed of the deep veins of both legs from the inguinal ligament to the popliteal fossa. Attempted visualization of the calf veins was performed. COMPARISON: None FINDINGS: Left peroneal veins appear clotted with no identifiable flow. The deep veins are otherwise normally compressible, and free of intraluminal thrombus. Color and pulse Doppler demonstrate south l phasic intravascular flow. There is normal augmentation response to distal compression maneuver. IMPRESSION: The left peroneal veins appear clotted with no identifiable flow, consistent with DVT. Other deep vei ns are patent throughout. Preliminary interpretation provided to the ordering provider by the medical technologist clinical. Reviewed by: Miguel Kent MD on 03/13/2024 9:57 AM PDT Approved by: Miguel Kent MD on 03/13/2024 9:57 AM PDT Station ID: [id number]
[2024-03-13] MEDS: SULFAMETH/TRIMETH DS 800/160 MG TABLET PO STA (10:34)
[2024-03-13] MEDS: APIXABAN 5 MG TABLET PO STA (10:34)
[2024-03-13 11:42] VITALS: BP 122/78
== END 2024-03-13 11:39 | disposition home or self-care (01) ==
LOC: EDUNIT# → ED 17:17
DX: R09.02 Hypoxemia (principal); I26.99 Other pulmonary embolism without acute cor pulmonale; C45.9 Mesothelioma, unspecified
CPT/HCPCS: 36415; 71045; 71275; 80053; 81001; 82803; 83605; 84484; 85025; 85610; 87086; 87181; 87633; 93005; 93970; 96360; 99284; 99285; A9270; Q9967; 81003